=== PATIENT | female | born 1945 | race Caucasian/White ===

== ENCOUNTER 2023-03-07 16:30 | Outpatient (RCR) | payer OTHER, SELFPAY ==
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
== END 2023-04-22 16:21 | disposition home or self-care (01) ==
PROVIDERS: PCP Family Medicine; Visit Provider Family Medicine
DX: M25.572 Pain in left ankle and joints of left foot (principal); Z51.89 Encounter for other specified aftercare
CPT/HCPCS: 97110; 97140; 97161

== ENCOUNTER 2023-06-03 11:01 | Outpatient (CLI) | payer OTHER, SELFPAY | END 2023-06-03 11:02 | disposition home or self-care (01) | PROVIDERS: PCP Family Medicine; Visit Provider Family Medicine | DX: R22.1 Localized swelling, mass and lump, neck (principal); E03.9 Hypothyroidism, unspecified; E66.9 Obesity, unspecified; E78.5 Hyperlipidemia, unspecified | CPT/HCPCS: 80053; 84443 ==

== ENCOUNTER 2023-06-09 14:11 | Outpatient (CLI) | payer OTHER, SELFPAY ==
--- NOTE | 2023-06-09 15:00 | CRLHL7_ITS ---
For Patients: As a result of the Century Cures Act, medical imaging exams and procedure reports are released immediately into your electronic medical record. You may view this report before your referring provider. If you have questions, please contact your health care provider. INDICATION: Localized swelling. Neck mass and lump. COMPARISON: None. TECHNIQUE: CT soft tissue neck with IV contrast. ICD 370, with and 10 cc. FINDINGS: A marker has been placed only on the associate media director images on the left neck presumably to localize the focal abnormality. On CT images, at the level of the marker, mildly prominent otherwise normal-sized left level 2A lymph nodes, the largest of which measures 9 mm in maximal diameter. Otherwise, the left parotid gland is normal symmetric to the right. No other abnormality within the underlying fat or musculature of the left neck. Normal bilateral parotid and submandibular glands. Atrophic thyroid gland. No soft tissue abnormality in the right neck. Scattered small cervical lymph nodes in the remainder of the neck bilaterally. No supraclavicular superior mediastinal adenopathy. Nasopharynx and oropharynx are clear. No inflammation within the parapharyngeal fat pads or retropharyngeal space. Normal thickness of the epiglottis. Normal glottis with symmetric vocal cords. Lung apices are clear. Normal alignment of the cervical spine. Cervical spondylosis. Visualized paranasal sinuses and mastoid air cells are clear. IMPRESSION: 1. No soft tissue mass or cystic lesions soft tissues of the left neck at the level of the marker. 2. Mildly prominent otherwise normal-sized level IIA lymph nodes on left. 3. No adenopathy elsewhere. 4. Normal deep soft tissues neck. 5. Cervical spondylosis Please note that all CT scans at this facility use dose modulation, iterative reconstruction, and/or weight-based dosing when appropriate to reduce radiation dose to as low as reasonably achievable. Dictated by Aydin Vega MD @ 06/10/2023 12:02:09 PM (Electronically Signed)
== END 2023-06-09 14:12 | disposition home or self-care (01) ==
LOC: CT 14:14
PROVIDERS: PCP Family Medicine; Visit Provider Family Medicine
DX: R22.1 Localized swelling, mass and lump, neck (principal); M47.892 Other spondylosis, cervical region
CPT/HCPCS: 70491; Q9967

== ENCOUNTER 2023-07-04 13:36 | Outpatient (CLI) | payer OTHER, SELFPAY ==
--- NOTE | 2023-07-04 14:00 | CRLHL7_ITS ---
For Patients: As a result of the Cures Act, medical imaging exams and procedure reports are released immediately into your electronic medical record. You may view this report before your referring provider. If you have questions, please contact your health care provider. Indication: PALPABLE LUMP LEFT NECK Technique: Grayscale and color Doppler ultrasound of the left parotid gland. Comparison: CT 06/09/2023 Findings: No parotid gland lesion. No abnormal vascularity. No abscess. Impression: No suspicious intra parotid lesion. Dictated by Yoan Lozano MD @ 07/04/2023 2:34:30 PM (Electronically Signed)
--- NOTE | 2023-07-04 15:30 | CRLHL7_ITS ---
For Patients: As a result of the Century Cures Act, medical imaging exams and procedure reports are released immediately into your electronic medical record. You may view this report before your referring provider. If you have questions, please contact your health care provider. INDICATION: Localized swelling, mass and lump. TECHNIQUE: Multiplanar multisequence MR imaging acquired through the neck prior to and following intravenous contrast. COMPARISON: CT neck 06/09/2023. FINDINGS: Motion artifact degrades multiple sequences. The nasopharynx, oropharynx, hypopharynx, and larynx are widely patent and without enhancing lesions. No thickening of the epiglottis or retropharyngeal edema. No enhancing lesions in the oral cavity or floor of mouth. No enhancing lesions in the parotid or submandibular glands. The thyroid gland demonstrates homogeneous signal intensity and enhancement. Borderline enlarged left level II a lymph node demonstrates elongated morphology. No pathologically enlarged lymph nodes. Limited images through the brain are without pathologic intracranial enhancement. Advanced left temporomandibular joint degenerative changes with associated joint effusion. Multilevel cervical spondylosis. No concerning opacities in the lung apices. IMPRESSION: 1. Motion artifact degrades multiple sequences. 2. No mass or pathologically enlarged lymph nodes in the neck. 3. Borderline enlarged left level IIa lymph node demonstrates elongated morphology and is most likely reactive. 4. Advanced left temporomandibular joint degenerative changes. Dictated by Brandon Cooper MD @ 07/05/2023 8:09:58 AM (Electronically Signed)
== END 2023-07-04 13:37 | disposition home or self-care (01) ==
PROVIDERS: PCP Family Medicine; Visit Provider Otolaryngology
DX: R22.1 Localized swelling, mass and lump, neck (principal)
CPT/HCPCS: 70543; 76536; A9575

== ENCOUNTER 2023-07-24 18:02 | Emergency (ER) | payer OTHER, SELFPAY ==
[2023-07-24 18:07] VITALS: BP 136/79; PULSE 81; RESP 16; TEMP 36.5; O2SAT 97; BMI 36.3
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
[2023-07-24] MEDS: 0.9 % SODIUM CHLORIDE 1000 ml 1,000 ML IV (18:50)
[2023-07-24] MEDS: ONDANSETRON ODT 4 MG TAB PO (18:52)
[2023-07-24 18:56] LABS: Basophils Absolute Auto 0.01 K/uL (0.00-0.30); Basophils Percent Auto 0.1 % (0.0-3.0); Eosinophils Percent Auto 1.3 % (0.0-7.0); Hemoglobin* 15.5 gm/dL (12.0-16.0); Immature Granulocytes Abs Auto 0.01 K/uL (0.00-0.30); Immature Granulocytes Pct Auto 0.1 %; Lymphocytes Percent Auto 5.2 % (20-44); Mean Corpuscular HGB Conc 33 gm/dL (32-36); Mean Corpuscular Hemoglobin 28 pg (26-34); Mean Corpuscular Volume 85 fL (80-100); Monocytes Percent Auto 3.7 % (0.0-11.0); Neutrophils Percent Auto 89.6 % (42.0-72.0); Platelet Count* 203 K/uL (140-440); RDW Coefficient of Variation % 13.1 % (11.5-15.5); Red Blood Count 5.56 m/uL (4.00-5.20); White Blood Count* 7.82 K/uL (4.50-11.00)
[2023-07-24 19:04] LABS: Lactate* 1.2 mmol/L (0.5-1.9); Slide Review Reflex No
[2023-07-24 19:17] LABS: Chloride* 106 mmol/L (96-114); Sodium* 136 mmol/L (135-149)
[2023-07-24 19:18] LABS: Potassium* 4.2 mmol/L (3.6-5.1)
[2023-07-24 19:20] LABS: Anion Gap 10 mEq/L (7-15); Blood Urea Nitrogen* 18 mg/dL (7-30); Carbon Dioxide* 20 mmol/L (20-32); Creatinine* 0.7 mg/dL (0.5-1.5); Estimated Glomerular Filt Rate 89 ml/min
[2023-07-24 19:21] LABS: Calcium* 8.9 mg/dL (8.4-10.6); Glucose* 124 mg/dL (60-115)
[2023-07-24 19:28] LABS: PCR FLU A Negative PCR FLU A (Negative); PCR FLU B Negative PCR FLU B (Negative); PCR RSV Negative PCR RSV (Negative)
[2023-07-24] MEDS: LOPERAMIDE HCL 2 MG CAPSULE 4 MG PO (19:32)
[2023-07-24 19:34] LABS: SARS PCR* Negative SARS-CoV-2 (Negative)
== END 2023-07-24 21:24 | disposition home or self-care (01) ==
PROVIDERS: Emergency Provider Emergency Medicine; PCP Family Medicine
DX: R11.2 Nausea with vomiting, unspecified (principal)
CPT/HCPCS: 36415; 80048; 83605; 85025; 87631; 95992; 99283; A9270; J7030

== ENCOUNTER 2023-08-18 05:01 | Outpatient (CLI) | payer OTHER, SELFPAY ==
--- OUTSIDE RECORDS SUMMARY | 2023-08-22 09:55 | XMS_ITS | Encounter Summary ---
Author Name Unknown Organization [facility] Address [facility] [place] [address] Care Team Providers Care Infrastructure Design Engineer Name Role Phone Bernadette Aldana MD Primary Care Provider Unavailab le Reason for Visit * Reason Onset Date Comments Referral 03/19/2019 New Eval Encounter Details Date Type Department Care Team (Late st Contact Info) Description 03/19/2019 Telephone Digital H2O [facility] [address] [place] [address] Pain Management Program, [facility] Referral (New Eval ) Social History [...] to schedule a new eval. Whitney Rendon Veterans Employment Representative [facility] * Telephone Encounter - Jenny Washington - 03/19/2019 2:12 PM CDT Referral received from Aditi Fraga NP at [facility] for a comprehensive evaluationand management. Diagnosis - Lumbar radicular pain with previous lumbar fusion Routing for scheduling. Jenny Washington Veterans Employment Representative [facility] documented in this encounter Plan of Treatment Not on file documented as of this encounter Visit Diagnoses Not on filedocumented in this encounter Care Teams Infrastructure Design Engineer Relationship Specialty Start Date End Date Bernadette Aldana MD PCP - General Family Practice 03/06/19 documented as of this encounter
--- OUTSIDE RECORDS SUMMARY | 2023-08-22 09:55 | XMS_ITS | Clinical Summary ---
Author Name Unknown Organization [place] Address [facility] [place] [address] Care Team Providers Care Die Fitter Name Role Phone Bernadette Aldana MD Primary [...] of Treatment Not on file Care Teams Die Fitter Relationship Specialty Start Date End Date Bernadette Aldana MD PCP - General Family Practice 03/06/19
--- OUTSIDE RECORDS SUMMARY | 2023-08-22 09:55 | XMS_ITS | Referral Summary ---
Author Name Unknown Organization [place] Address [address] [facility] [place] [address] Care Team Providers Care Preassembler Printed Circuit Board Name Role Phone Bernadette Aldana MD Primary [...] of Treatment Not on file Care Teams Preassembler Printed Circuit Board Relationship Specialty Start Date End Date Bernadette Aldana MD PCP - General Family Practice 03/06/19
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
== END 2023-08-18 05:02 | disposition home or self-care (01) ==
LOC: AMB 08-22 09:53
PROVIDERS: PCP Family Medicine; Visit Provider Family Medicine
DX: R53.1 Weakness (principal)
CPT/HCPCS: A0998

== ENCOUNTER 2023-08-18 16:16 | Emergency (ER) | payer OTHER, SELFPAY ==
[2023-08-18 16:32] VITALS: BP 155/80; PULSE 70; RESP 16; TEMP 36.2; O2SAT 99; BMI 35.5
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
--- NOTE | 2023-08-18 17:07 | CRLHL7_ITS ---
For Patients: As a result of the Century Cures Act, medical imaging exams and procedure reports are released immediately into your electronic medical record. You may view this report before your referring provider. If you have questions, please contact your health care provider. Indication : Fall, neck pain. Technique : CT of the brain without intravenous contrast. Comparison: CT head 06/09/2021. Findings: No acute blurring of the ramos-white differentiation. There is no intracranial hemorrhage. The ventricles are proportionate to the cerebral sulci. The 4th ventricle is midline. Basal cisterns appear patent. No abnormal extra-axial fluid collection identified. Mild parenchymal volume loss. There is mild patchy periventricular hypodensity, favored to represent chronic ischemic microvascular disease. There is no intracranial mass, mass effect or midline shift identified. No depressed calvarial fracture. Impression: 1. No acute intracranial process. 2. Mild chronic ischemic microvascular disease. Please note that all CT scans at this facility use dose modulation, iterative reconstruction, and/or weight-based dosing when appropriate to reduce radiation dose to as low as reasonably achievable. Dictated by Maykel Spicer MD @ 08/18/2023 6:03:30 PM (Electronically Signed)
--- OUTSIDE RECORDS SUMMARY | 2023-08-18 17:22 | XMS_ITS | Clinical Summary ---
Author Name Unknown Organization [place] Address [facility] [place] [address] Care Team Providers Care Bone Cooking Operator Name Role Phone Bernadette Aldana MD Primary Care Provider Unavailab le Allergies No known active allergies Medications Medication Sig Dispensed Refills Start Date End Date Status CYCLOBENZAPRINE HCL PO Take by mouth. 0 Active oxyCODONE-acetaminoph en (PERCOCET) 5-325 MG per tablet Take 1 tablet by mouth every 6 hours as needed for pain. 20 tablet 0 01/18/2012 Active ibuprofen (ADVIL,MOTRIN) 200 MG tablet Take 3 tablets by mouth every 8 hours as needed for pain. 20 tablet 0 01/18/2012 Active HYDROcodone-acetamino phen (NORCO) 5-325 MG tablet Take 1-2 tablets by mouth every 6 hours as needed for severe pain 12 tablet 0 03/06/2019 Active Social History Tobacco Use Types Packs/Day Years Used Date Smoking Tobacco: Former Alcohol Use Standard Drinks/Week Comments No 0 (1 standard drink = 0.6 oz pur e alcohol) Sex and Gender Information Value Date Recorded Sex Assigned at Not on file Gender Identity Not on file Sexual Orientation Not on file Last Filed Vital Signs Vital Sign Reading Time Taken Comments Blood Pressure 130/67 03/06/2019 6:20 PM CDT Pulse 73 03/06/2019 3:45 PM CDT Temperature 36.9 ??C (98.4 ??F) 03/06/2019 3:45 PM CD T Respiratory Rate 16 03/06/2019 6:59 PM CDT Oxygen Saturation 95% 03/06/2019 6:30 PM CDT Inhaled Oxygen Concentration - - Weight 100.7 kg (222 lb) 01/18/2012 8:43 PM CDT Height 170.2 cm (5' 7) 01/18/2012 8:43 PM CDT Body Mass Index 34.77 01/18/2012 8:43 PM CDT Plan of Treatment Not on file Care Teams Bone Cooking Operator Relationship Specialty Start Date End Date Bernadette Aldana MD PCP - General Family Practice 03/06/19
--- OUTSIDE RECORDS SUMMARY | 2023-08-18 17:22 | XMS_ITS | Clinical Summary ---
Author Name Unknown Organization [facility] Address [place], [place] [address] Care Team Providers Care Driver Lifter Of Sanitation Truck Name Role Phone Viviana Zuniga AuD Unavailable [phone] Allergies No known active allergies Medications Medication Sig Dispensed Refills Start Date End Date Status Incontinence Pad, Liner, Disp padsIndications:Urin venkatesh incontinence, unspecified type 1 Package 04/28/2017 Active albuterol (PROVENTIL) 0.083 % neb solutionIndications: SOB (shortness of breath) Inhale 3 mL (2.5 mg) via a nebulizer every 6 hours if needed for Cough 1st choice. 180 mL 0 07/22/2022 Active NebulizerIndications :SOB (shortness of breath) Nebulizer, disposable neb kit x 4, reuseable neb kit x 1, mask x 1, filters x 1. Frequency of use: daily; Medication: albuterol Length of need: prn months 1 Each 0 07/22/2022 Active permethrin (ELIMITE) 5 % creamIndications:Alexandr h,Pruritus Apply to entire body from the neck down and leave on for 8 hours. Then rinse and repeat this in one week. 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 Constipation 12/26/2017 ACP (advance care planning) 12/19/2017 Overview: Patient has identified Health Care Agent(s): Yes Add Health Care Agents: Yes Health Care Agent(s): Primary Health Care Agent: Dtr Relationship: Stephani Sellers Phone: W:[phone] ext [phone] Secondary Health Care Agent: Dtr Relationship: Thompson Saucedo Phone: M:[phone] Conservator: Relationship: Phone: Guardian: Relationship: Phone: Patient has Advance Care Plan Documents (Health Care Directive, POLST): Yes Advance Care Plan Documents: Health Care Directive Patient has identified Specific Treatment Preferences: Yes How have preferences been verified: HCD Specific Treatment Preferences: Please refer to HCD - Pt does not want CPR attempted if heart or breathing stops. 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 Recommend no intervention at this time If symptoms develop, consider cholecystectomy. Acosta Lang MD........06/11/2017......2:15 PM Chantale Nunez Physician Fatty liver 06/10/2017 Low HDL (under 40) 06/10/2017 High triglycerides 06/10/2017 Obesity (BMI 30-39.9) 06/10/2017 Hypothyroidism (acquired) 06/10/2017 Other constipation 06/10/2017 Seborrheic keratosis 06/03/2017 Overview: Right breast Atypical chest pain 03/21/2016 FLORENCIO (obstructive sleep apnea) 03/21/2016 Overview: AHI 13.0 on Home Sleep Test, WALE 11.4, snore index 8.6% Urinary incontinence 06/04/2013 Sensorineural hearing loss, bilateral 06/01/2013 Vitamin D deficiency 10/29/2012 Osteoporosis 10/23/2012 Impingement syndrome of left shoulder 08/25/2012 L4-5 disk bulge with annular tear and right leg pain 12/09/2011 Shingles rash vs. 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 Followed by Dr Strong, [facility] Advance care planning 03/27/2011 PVD (posterior vitreous detachment) 05/30/2009 Resolved Problems Problem Noted Date Diagnosed Date Resolved Date Acute cystitis without hematuria 01/01/2018 09/20/2019 Hypocalcemia 12/26/2017 09/20/2019 Hypokalemia 12/26/2017 09/20/2019 Postoperative anemia due to acute blood loss 8 09/20/2019 S/P hip replacement-right 10/12/2014 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 No compression fx Iron deficiency anemia, unspecified 04/17/2011 01/11/2014 DJD (degenerative joint disease) of hip-Right 03/27/20 11 09/20/2019 Elevated blood pressure read ing without diagnosis of hypertension 05/12/2009 01/11/2014 Immunizations Name Administration Dates Next Due COVID-19 vaccine (Moderna 100mcg/0.5mL) PF, MDV 10/26/2020 Influenza, High-dose Inactivated 05/09/2020,05/12 Influenza, IIV3 (Age 6-35 mos) 06/27/2011 Influenza, IIV3 (Age >=3 years) 05/06/2013,06/27 Influenza, IIV4 (=>6mos) MDV 05/26/2014 Influenza, Inactivated IIV3 (Age 65+ Years) Preserv Free 05/26/2018 Pneumococcal Poly,23-Valent (Pneumovax) 08/24/19 13 Pneumococcal conj 13-Valent (Prevnar 13) 016 Td (Age >=7 Years) 04/11/1996 Tdap 03/27/2011 Zoster (Zostavax-ZVL, live) 05/30/2011 Family History Medical History Relation Name Comments Cancer Brother Bladder Diabetes Father Heart Disease Father Cancer-breast Mother Other Mother multiple sclero sis Cancer-colon Sister Cancer-ovarian No Family History Relation Name Status Comments Brother Father Mother (Age 57) Diagnosed at 39 Sister Social History Tobacco Use Types Packs/Day Years Used Date Smoking Tobacco: Former Cigarettes 0.5 10 0 10/11/1960 - 10/11/1970 Smokeless Tobacco: Never Tobacco Cessation:Counseling Given: Yes Alcohol Use Standard Drinks/Week Comments Not Currently 0 (1 standard drink = 0.6 oz pur e alcohol) PHQ-2 Answer Date Recorded PHQ-2 Score 1 08/31/2019 Social Connections Answer Date Recorded Frequency of Communication with Friends and Fami ly Not on file 08/11/2021 Financial Resource Strain Answer Date R ecorded Difficulty of Paying Living Expenses Not on file 08/11/2021 Difficulty of Paying Living Expenses Not on file 08/11/2021 Sex and Gender Information Value Date Recorded Sex Assigned at Not on file Gender Identity Not on file Sexual Orientation Not on file Obstetrics History Last Filed Vital Signs Vital Sign Reading Time Taken Comments Blood Pressure 112/57 10/14/2022 7:59 AM SECURITY DELIVERY SPECIALIST Pulse 55 10/14/2022 7:59 AM SECURITY DELIVERY SPECIALIST Temperature 36.3 ??C (97.4 ??F) 08/27/2022 7:36 AM CS T Respiratory Rate 18 12/21/2017 7:23 AM CDT Oxygen Saturation 97% 08/27/2022 7:36 AM SECURITY DELIVERY SPECIALIST Inhaled Oxygen Concentration - - Weight 103.7 kg (228 lb 11.2 oz) 08/27/2022 7:36 AM SECURITY DELIVERY SPECIALIST Height 172.7 cm (5' 8) 11/28/2021 3:18 PM CDT Body Mass Index 34.77 11/28/2021 3:18 PM CDT Plan of Treatment Health Maintenance Due Date Last Done Comments Zoster (shingles) series for age 50+ (1 of 2) 07/25/2011 05/30/2011 Medicare Wellness for age 65+ 08/24/2013 08/24/2012 Depression screening for age 12+ 08/31/2020 08/31/2019, 05/21/2018, 05/18/2018, Additional history exists Tetanus booster 03/27/2021 03/27/2011, 04/11/1996 BMI (ht and wt on same day) for age 18+ 11/28/2022 11/28/2021, 12/05/2020, 09/20/2019, Additional history exists COVID-19 vaccine series ( season) 2023 01/17/2022, 06/15/2021, 10/26/2020, Additional history exists Influenza for age 65+ 04/11/2023 05/09/2020 , 06/02/2019, 05/26/2018, Additional history exists Tdap Completed 03/27/2011 DEXA/DXA scan for age 65+ Completed 2012, 09/01/2012, 10/30/2010 Pneumococcal series for age 65+ Completed 6, 08/24/2012 Hepatitis C screening for ag e 18-79 Completed 06/10/2017 Fecal testing non-DNA (FIT,FOBT,iFOBT) for age 45-75 Discontinued 01/07/2018, 10/12/2014 Medical Devices Implanted Type Area Project Drilling Engineer Device Identifier Shelf Expiration Date Model / Serial / Lot Bone Matrix Xsm Infuse Bmp - [id number] Implanted:Qty: 1 on 12/18/2017 by Yoan New MD at [facility] N/A: Spine Medtronic Spine/Ortho 02/07/2019 [id number] / / [id number] Screw Lmbr Post 5.5x55mm Solera 5.5/6 Va Cocr - [id number] Implanted:Qty: 2 on 12/18/2017 by Yoan New MD at [facility] N/A: Spine Medtronic Spine/Ortho [id number] 5# / / Scot Lmbr 60x5.5mm Solera 5.5/6cvd Co Cr - [id number] Implanted:Qty: 2 on 12/18/2017 by Yoan New MD at [facility] N/A: Spine Medtronic Spine/Ortho [id number] # / / Bone Matrix 10cc Progenix Putty Dbm - [id number] Implanted:Qty: 1 on 12/18/2017 by Yoan New MD at [facility] N/A: Spine Medtronic Spine/Ortho 03/21/2019 [id number]# / / [id number] Spacer Lmbr [id number] 8deg Mdsovereign Stand Alone - [id number] Implanted:Qty: 1 on 12/18/2017 by Yoan New MD at [facility] N/A: Spine Medtronic Spine/Ortho 08/19/2024 [id number] / / [id number] Spacer Lmbr [id number] 8deg Mdsovereign Stand Alone - [id number] Implanted:Qty: 1 on 12/18/2017 by Yoan New MD at [facility] N/A: Spine Medtronic Spine/Ortho 01/29/2018 [id number]# / / [id number] Screw Lmbr 5.5x25mm Sovereign Stand Alone - [id number] Implanted:Qty: 4 on 12/18/2017 by Yoan New MD at [facility] N/A: Spine Medtronic Spine/Ortho [id number]# / / Screw Lmbr 5.5x20mm Sovereign Stand Alone - [id number] Implanted:Qty: 1 on 12/18/2017 by Yoan New MD at [facility] N/A: Spine Medtronic Spine/Ortho [id number]# / / Set Screw Lmbr Ant 5.5mm Solera Break Off - [id number] Implanted:Qty: 6 on 12/18/2017 by Yoan New MD at [facility] N/A: Spine Medtronic Spine/Ortho [id number]# / / Screw Lmbr Post 7.5x55mm Solera 5.5/6 Va Cocr - [id number] Implanted:Qty: 2 on 12/18/2017 by Yoan New MD at [facility] N/A: Spine Medtronic Spine/Ortho [id number] 5# / / Screw Lmbr Post 7.5x45mm Solera 5.5/6 Va Cocr - [id number] Implanted:Qty: 2 on 12/18/2017 by Yoan New MD at [facility] N/A: Spine Medtronic Spine/Ortho [id number] 5# / / Advance Directives Documents on File Type Date Recorded Patient Sleeve Setter Lockstitch Expl anation Healthcare Directive 01/13/2018 12:57 PM DN R REQUEST FORM, DESIRE MERCADO, 01/06/18 POLST 01/13/2018 12:56 PM DESIRE GAMBINO, 01/06/18 Healthcare Directive 12/19/2017 6:59 PM Healthcare Directive 12/18/2017 12:00 AM Latest Code Status on File Code Status Date Activated Date Inactivated Comments Full Code 12/18/2017 5:35 AM 12/21/2017 2:04 PM Code Status History Code Status Date Activated Date Inactivated Comments Full Code 11/03/2012 11:20 AM 11/03/2012 3:27 PM Full Code 11/03/2012 7:10 AM 11/03/2012 11:20 AM Care Teams Driver Lifter Of Sanitation Truck Relationship Specialty Start Date End Date Viviana Zuniga AuD Audiology 06/01/13
--- OUTSIDE RECORDS SUMMARY | 2023-08-18 17:22 | XMS_ITS | Referral Summary ---
Author Name Unknown Organization [place] Address [address] [facility] [place] [address] Care Team Providers Care Business Librarian Name Role Phone Bernadette Aldana MD Primary [...] of Treatment Not on file Care Teams Business Librarian Relationship Specialty Start Date End Date Bernadette Aldana MD PCP - General Family Practice 03/06/19
--- OUTSIDE RECORDS SUMMARY | 2023-08-18 17:22 | XMS_ITS | Encounter Summary ---
Author Name Unknown Organization [place] Address [facility] [place] [address] Care Team Providers Care Agricultural Plow Operator Name Role Phone Bernadette Aldana MD Primary Care Provider Unavailab le Reason for Visit * Reason Onset Date Comments Referral 03/19/2019 New Eval Encounter Details Date Type Department Care Team (Late st Contact Info) Description 03/19/2019 Telephone enMarkit [facility] [address] [place] [address] Pain Management Program, [facility] Referral (New Eval ) Social History Tobacco Use Types Packs/Day Years Used Date Smoking Tobacco: Former Alcohol Use Standard Drinks/Week Comments No 0 (1 standard drink = 0.6 oz pur e alcohol) Sex and Gender Information Value Date Recorded Sex Assigned at Not on file Gender Identity Not on file Sexual Orientation Not on file documented as of this encounter Miscellaneous Notes * Telephone Encounter - Whitney Rendon - 03/22/2019 10:23 AM CDT Lm to schedule a new eval. Whitney Rendon Safety Advisor [facility] * Telephone Encounter - Jenny Washington - 03/19/2019 2:12 PM CDT Referral received from Aditi Fraga NP at [facility] for a comprehensive evaluationand management. Diagnosis - Lumbar radicular pain with previous lumbar fusion Routing for scheduling. Jenny Washington Safety Advisor [facility] documented in this encounter Plan of Treatment Not on file documented as of this encounter Visit Diagnoses Not on filedocumented in this encounter Care Teams Agricultural Plow Operator Relationship Specialty Start Date End Date Bernadette Aldana MD PCP - General Family Practice 03/06/19 documented as of this encounter
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
[2023-08-18] MEDS: ACETAMINOPHEN 500 MG TABLET 1000 MG PO (18:11)
--- NOTE | 2023-08-18 18:12 | CRLHL7_ITS ---
For Patients: As a result of the Century Cures Act, medical imaging exams and procedure reports are released immediately into your electronic medical record. You may view this report before your referring provider. If you have questions, please contact your health care provider. Indication: Hip pain. Technique: Noncontrast CT of the right hip was performed. Please note that all CT scans at this facility use dose modulation, iterative reconstruction, and/or weight-based dosing when appropriate to reduce radiation dose to as low as reasonably achievable. Comparison: Radiographs from 08/18/2023 and 02/28/2019. Findings: Anatomic alignment of the right total hip prosthesis. Hardware is intact without evidence of complication. No acute fracture is seen. Mild osteoarthritis of the sacroiliac joints. Moderate degenerative changes of the left hip and pubic symphysis. Partially visualized lumbosacral fusion hardware. The bones are diffusely demineralized. Atherosclerotic arterial calcifications. Nonobstructed bowel. Impression: Anatomic alignment of the right hip prosthesis. No evidence of periprosthetic fracture. Please note that all CT scans at this facility use dose modulation, iterative reconstruction, and/or weight-based dosing when appropriate to reduce radiation dose to as low as reasonably achievable. Dictated by Lisa Conway MD @ 08/18/2023 8:01:31 PM (Electronically Signed)
== END 2023-08-18 20:15 | disposition home or self-care (01) ==
PROVIDERS: Emergency Provider Family Medicine; PCP Family Medicine
DX: M54.2 Cervicalgia (principal); M25.551 Pain in right hip; W10.9XXA Fall (on) (from) unspecified stairs and steps, initial encounter
CPT/HCPCS: 70450; 72125; 73700; 99284; 99285; A9270

== ENCOUNTER 2023-10-29 14:26 | Emergency (ER) | payer OTHER, SELFPAY ==
[2023-10-29 14:47] VITALS: BP 113/74; PULSE 64; RESP 20; TEMP 36.6; O2SAT 96; BMI 34.7
--- NOTE | 2023-10-29 15:05 | CT_ITS ---
Patient: [facility] Facility:?[facility] RIS Patient ID:?[id number] Site Patient ID:?[id number]. Site :?1945 Study:?CT-Abdomen/Pelvis W/ ISOVUE 370-10/29/2023 4:07:37 PM Ordering Physician:ANGÉLICA Final Report: INDICATION: Abdominal pain, diarrhea TECHNIQUE: CT of the abdomen and pelvis was obtained with 106 mL of Isovue 370 intravenous contrast. Please note that all CT scans at this facility use dose modulation, iterative reconstruction, and/or weight-based dosing when appropriate to reduce radiation dose to as low as reasonably achievable. COMPARISON: None. FINDINGS: Lower thorax: 7 millimeter right lower lobe subpleural nodule (11/06). Consensus guidelines for incidentally detected lung nodule(s) 6 mm or greater on incomplete thoracic CT, not applicable if known malignancy or immunocompromise: Low risk, nodule 6-8 mm: CT at 6-12 months, then consider CT at 18-24 months if stable. High risk, nodule 6-8 mm: CT at 6-12 months, then CT at 18-24 months if stable. Nodule greater than 8 mm: Further evaluation with full chest CT. (Jovi, et al. Radiology 2017) Liver and biliary tree: Normal. Gallbladder: Cholelithiasis versus sludge. Spleen: Normal. Pancreas: Mild fatty atrophy. Adrenal glands: Normal. Kidneys and ureters: No hydronephrosis. No obstructing renal calculi. Subcentimeter hypoattenuating lesions are too small to characterize and are favored to represent cysts. Gastrointestinal tract: Mild descending and sigmoid colonic diverticulosis without CT evidence of acute diverticulitis. Appendix is not definitively visualized. No evidence of bowel obstruction. Mild submucosal edema of the descending and sigmoid colon. Peritoneal cavity: Normal. Bladder: Normal. Pelvic organs: Status post hysterectomy. Vasculature: Moderate calcification. Lymph nodes: Normal. Abdominal wall: Normal. Musculoskeletal: Postsurgical changes from screw fixated right total hip arthroplasty. Moderate degenerative changes of the left hip. Postsurgical changes from lumbosacral spinal fusion. IMPRESSION: 1. Cholelithiasis versus sludge without CT evidence of acute cholecystitis. 2. Mild submucosal edema of the descending and sigmoid colon may represent infection or inflammation, though this may be accentuated by underdistention. Please note that all CT scans at this facility use dose modulation, iterative reconstruction, and/or weight-based dosing when appropriate to reduce radiation dose to as low as reasonably achievable. Dictated by Geremias Caldwell MD @ 10/29/2023 4:35:39 PM Signed by:?Geremias Caldwell MD @10/29/2023 4:35:39 PM (Electronic Signature)
--- NOTE | 2023-10-29 15:08 | ED_ITS ---
HPI - General Adult General Chief complaint: Abdominal Pain <Michael Combs MD - Last Filed: 10/29/23 15:13> Stated complaint: Vomiting green, lightheaded, weight loss <Michael Combs MD - Last Filed: 10/29/23 15:13> Time Seen by Provider: 10/29/23 14:29 <Michael Combs MD - Last Filed: 10/29/23 15:13> History of Present Illness HPI narrative: Patient is a 77 year white female who in for a cruise to [employer] earlier this month. She came home with a cough and a cold, she has been living in exposed to someone who has COVID. She has tested negative up to this point. She has had mostly her complaint today is diarrhea, when she eats food goes ?right through me?. Patient denies horrible abdominal pain but does report some nonspecific diffuse abdominal cramping. She has had no blood in her stool. She has had no vomitus of blood. She has not had any intestinal infections in the past. She is usually quite healthy. Her medical chart is reviewed . she reports she has lost a little bit of weight She denies shortness of breath, denies chest pain, denies cough that is been bothersome now, denies leg swelling or edema or bleeding or clotting problems. <Michael Combs MD - Last Filed: 10/29/23 15:13> Related Data Home medications: Home Medications Medication Instructions Recorded Confirmed No Known Home Medications 01/28/23 08/18/23 <Michael Combs MD - Last Filed: 10/29/23 15:13> Allergies/adverse reactions: Allergies Allergy/AdvReac Type Severity Reaction Status Date / Time No Known Drug Allergies Allergy Verified 08/18/23 14:39 <Michael Combs MD - Last Filed: 10/29/23 15:13> Review of Systems Status of ROS: Reports: 6 or more systems reviewed and unremarkable except as noted in History and below <Michael Combs MD - Last Filed: 10/29/23 15:13> PFSH PFS Surgical History: Surgical History Status post right knee replacement ?Z96.651 - Presence of right artificial knee joint (ICD-10) Status post lumbar spinal fusion ?Z98.1 - Arthrodesis status (ICD-10) <Michael Combs MD - Last Filed: 10/29/23 15:13> Family History: Family History Family/Other Colon cancer <Michael Combs MD - Last Filed: 10/29/23 15:13> Social History: Social History Narrative: Has a male roommate, nonsmoker, 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 Smoking Status: Never smoker Do you use any of these nicotine containing products: None Second hand tobacco smoke exposure: No How often do you have a drink containing alcohol: never How often do you have six or more drinks on one occasion: Never AUDIT-C Alcohol total score: 0 Non-prescribed substance use: denies use Little interest or pleasure in doing things: not at all Feeling down, depressed, or hopeless: not at all service: No <Michael Combs MD - Last Filed: 10/29/23 15:13> Exam Narrative: Exam Narrative: Objective: Vital signs look within normal limits, afebrile, O2 sat 96% on room air Alert orient x3, noncyanotic Neck is supple HEENT is unremarkable no facial asymmetry mouth clear Chest is clear Pulse regular Abdomen obese benign nontender no masses minimal periumbilical discomfort to palpation Good peripheral perfusion, no peripheral swelling. Neurologic nonfocal in upper lower extremities Skin is warm and dry, no skin rashes <Michael Combs MD - Last Filed: 10/29/23 15:13> Const: Vital Signs, click to edit/add: Vital Signs - 24 hr 10/29/23 14:47 10/29/23 15:26 10/29/23 15:30 Temperature 97.8 F Pulse Rate 53 L 60 Pulse Rate [Pulse Oximeter] 64 Respiratory Rate 20 14 16 Blood Pressure 130/92 H 136/76 Blood Pressure [Ri ght Upper Arm] 113/74 Pulse Oximetry 96 96 94 Oxygen Delivery Me thod Room Air <Michael Combs MD - Last Filed: 10/29/23 15:13> Vital Signs, click to edit/add: Vital Signs - 24 hr 10/29/23 14:47 10/29/23 15:26 10/29/23 15:30 Temperature 97.8 F Pulse Rate 53 L 60 Pulse Rate [Pulse Oximeter] 64 Respiratory Rate 20 14 16 Blood Pressure 130/92 H 136/76 Blood Pressure [Ri ght Upper Arm] 113/74 Pulse Oximetry 96 96 94 Oxygen Delivery Me thod Room Air <Adonis Rich DO - Last Filed: 10/29/23 16:47> Course Vital Signs Vital signs: Initial Vital Signs Temperature 97.8 F 10/29/23 14:47 Temperature Source Temporal Artery Scan 10/29/23 14:47 Pulse Rate 64 10/29/23 14:47 Pulse Rhythm Regular 10/29/23 14:47 Respiratory Rate 20 10/29/23 14:47 Blood Pressure 113/74 10/29/23 14:47 Blood Pressure Mean 87 10/29/23 14:47 Blood Pressure Position Supine 10/29/23 14:47 Pulse Oximetry 96 10/29/23 14:47 Oxygen Delivery Method Room Air 10/29/23 14:47 Vital Signs Temperature 97.8 F 10/29/23 14:47 Pulse Rate 64 10/29/23 14:47 Respiratory Rate 20 10/29/23 14:47 Blood Pressure 113/74 10/29/23 14:47 Pulse Oximetry 96 10/29/23 14:47 Oxygen Delivery Method Room Air 10/29/23 14:47 Temperature 97.8 F 10/29/23 14:47 Pulse Rate 60 10/29/23 15:30 Respiratory Rate 16 10/29/23 15:30 Blood Pressure 136/76 10/29/23 15:30 Pulse Oximetry 94 10/29/23 15:30 Oxygen Delivery Method Room Air 10/29/23 14:47 <Michael Combs MD - Last Filed: 10/29/23 15:13> Initial Vital Signs Temperature 97.8 F 10/29/23 14:47 Temperature Source Temporal Artery Scan 10/29/23 14:47 Pulse Rate 64 10/29/23 14:47 Pulse Rhythm Regular 10/29/23 14:47 Respiratory Rate 20 10/29/23 14:47 Blood Pressure 113/74 10/29/23 14:47 Blood Pressure Mean 87 10/29/23 14:47 Blood Pressure Position Supine 10/29/23 14:47 Pulse Oximetry 96 10/29/23 14:47 Oxygen Delivery Method Room Air 10/29/23 14:47 Vital Signs Temperature 97.8 F 10/29/23 14:47 Pulse Rate 64 10/29/23 14:47 Respiratory Rate 20 10/29/23 14:47 Blood Pressure 113/74 10/29/23 14:47 Pulse Oximetry 96 10/29/23 14:47 Oxygen Delivery Method Room Air 10/29/23 14:47 Temperature 97.8 F 10/29/23 14:47 Pulse Rate 60 10/29/23 15:30 Respiratory Rate 16 10/29/23 15:30 Blood Pressure 136/76 10/29/23 15:30 Pulse Oximetry 94 10/29/23 15:30 Oxygen Delivery Method Room Air 10/29/23 14:47 <Adonis Rich DO - Last Filed: 10/29/23 16:47> Medications Administered Medications: Discontinued Medications Generic Name Dose Route Start Last Admin Trade Name Freq PRN Reason Stop Dose Admin Sodium Chloride 1,000 mls @ 6,000 mls/hr 10/29/23 15:15 10/29/23 16:17 0.9 % Sodium Chloride 1000 Ml IV 10/29/23 15:24 Infused .Q10M ODALYS Infusion <Michael Combs MD - Last Filed: 10/29/23 15:13> Discontinued Medications Generic Name Dose Route Start Last Admin Trade Name Freq PRN Reason Stop Dose Admin Sodium Chloride 1,000 mls @ 6,000 mls/hr 10/29/23 15:15 10/29/23 16:17 0.9 % Sodium Chloride 1000 Ml IV 10/29/23 15:24 Infused .Q10M ODALYS Infusion <Adonis Rich DO - Last Filed: 10/29/23 16:47> Medical Decision Making MDM Narrative Medical decision making narrative: [age] white female with a history of recent travel, with diarrhea, loose stools. Patient did have a upper respiratory type symptoms and now it has improved. She has been testing negative for COVID. At this point would recommend she do COVID test and triple swab, will check a CT scan of her abdomen given this has been persistent now for couple of weeks. Rule out diverticulitis, rule out colitis. Will also check stool sample for culture, O&P, C diff. disposition pending findings. <Michael Combs MD - Last Filed: 10/29/23 15:13> Patient was signed out to me pending CT scan and stool samples. CT scan returned showing cholelithiasis without any evidence of acute cholecystitis. She does states she has occasional bowel right upper quadrant pain but none right now. I do not believe we need to get General surgery involved at this time and if she does have right upper quadrant symptoms that are persistent she can follow-up on an outpatient setting. She is agreeable to this. There is also mucosal edema of the descending and sigmoid colon that could be infectious versus inflammatory. Hard to say definitively at this time. She otherwise is appeared well. Her COVID test came back positive. She notes she test positive for COVID 1 week ago also. This is diarrhea seems likely a continuation of her COVID symptoms. She otherwise looks well and is well hydrated. Vital signs are within normal limits. I believe she is safe for discharge she is agreeable with this plan. She has been unable to do a bowel movement at this time so we sent her home a specimen cup to return. She is agreeable to this plan <Adonis Rich DO - Last Filed: 10/29/23 16:47> Lab Data Labs: Lab Results 10/29/23 Range/Units 15:15 WBC 6.97 (4.50-11.00) K/uL RBC 4.80 (4.00-5.20) m/uL Hgb 13.3 (12.0-16.0) gm/dL Hct 40.5 (33.0-51.0) % MCV 84 (80-100) fL MCH 28 (26-34) pg MCHC 33 (32-36) gm/dL RDW Coeff of Cailin 13.2 (11.5-15.5) % Plt Count 193 (140-440) K/uL Neut % (Auto) 71.2 (42.0-72.0) % Lymph % (Auto) 18.7 L (20-44) % [place] % (Auto) 7.9 (0.0-11.0) % Eos % (Auto) 2.0 (0.0-7.0) % Baso % (Auto) 0.1 (0.0-3.0) % Neut # (Auto) 4.96 (1.7-7.0) K/uL Lymph # (Auto) 1.30 (0.90-2.90) K/uL [place] # (Auto) 0.60 (0.00-0.90) K/UL Eos # (Auto) 0.14 (0.00-0.50) K/uL Baso # (Auto) 0.01 (0.00-0.30) K/uL Abs Immat Gran (auto) 0.01 (0.00-0.30) K/uL Imm/Tot Granulo (auto) 0.1 % Sodium 139 (135-149) mmol/L Potassium 3.7 (3.6-5.1) mmol/L Chloride 107 (96-114) mmol/L Carbon Dioxide 28 (20-32) mmol/L Anion Gap 4 L (7-15) mEq/L BUN 20 (7-30) mg/dL Creatinine 0.7 (0.5-1.5) mg/dL Estimated Creat Clear 44.10 Estimated GFR 89 ml/min Glucose 105 (60-115) mg/dL Calcium 9.4 (8.4-10.6) mg/dL Total Bilirubin 0.9 (0.1-1.5) mg/dL Direct Bilirubin 0.3 (0.0-0.5) mg/dL AST 27 (12-35) U/L ALT 24 (4-35) U/L Alkaline Phosphatase 102 (40-150) U/L C-Reactive Protein < 0.5 L (0.5-1.0) mg/dL Total Protein 6.5 (6.0-8.3) g/dL Albumin 4.0 (3.3-5.0) g/dL Amylase 50 (18-89) U/L SARS-CoV-2 (PCR) POSITIVE SARS-CoV-2 A (Negative) Influenza Type A (PCR) Negative PCR FLU A (Negative) Influenza Type B (PCR) Negative PCR FLU B (Negative) RSV (PCR) Negative PCR RSV (Negative) <Michael Combs MD - Last Filed: 10/29/23 15:13> Lab Results 10/29/23 Range/Units 15:15 WBC 6.97 (4.50-11.00) K/uL RBC 4.80 (4.00-5.20) m/uL Hgb 13.3 (12.0-16.0) gm/dL Hct 40.5 (33.0-51.0) % MCV 84 (80-100) fL MCH 28 (26-34) pg MCHC 33 (32-36) gm/dL RDW Coeff of Cailin 13.2 (11.5-15.5) % Plt Count 193 (140-440) K/uL Neut % (Auto) 71.2 (42.0-72.0) % Lymph % (Auto) 18.7 L (20-44) % [place] % (Auto) 7.9 (0.0-11.0) % Eos % (Auto) 2.0 (0.0-7.0) % Baso % (Auto) 0.1 (0.0-3.0) % Neut # (Auto) 4.96 (1.7-7.0) K/uL Lymph # (Auto) 1.30 (0.90-2.90) K/uL [place] # (Auto) 0.60 (0.00-0.90) K/UL Eos # (Auto) 0.14 (0.00-0.50) K/uL Baso # (Auto) 0.01 (0.00-0.30) K/uL Abs Immat Gran (auto) 0.01 (0.00-0.30) K/uL Imm/Tot Granulo (auto) 0.1 % Sodium 139 (135-149) mmol/L Potassium 3.7 (3.6-5.1) mmol/L Chloride 107 (96-114) mmol/L Carbon Dioxide 28 (20-32) mmol/L Anion Gap 4 L (7-15) mEq/L BUN 20 (7-30) mg/dL Creatinine 0.7 (0.5-1.5) mg/dL Estimated Creat Clear 44.10 Estimated GFR 89 ml/min Glucose 105 (60-115) mg/dL Calcium 9.4 (8.4-10.6) mg/dL Total Bilirubin 0.9 (0.1-1.5) mg/dL Direct Bilirubin 0.3 (0.0-0.5) mg/dL AST 27 (12-35) U/L ALT 24 (4-35) U/L Alkaline Phosphatase 102 (40-150) U/L C-Reactive Protein < 0.5 L (0.5-1.0) mg/dL Total Protein 6.5 (6.0-8.3) g/dL Albumin 4.0 (3.3-5.0) g/dL Amylase 50 (18-89) U/L SARS-CoV-2 (PCR) POSITIVE SARS-CoV-2 A (Negative) Influenza Type A (PCR) Negative PCR FLU A (Negative) Influenza Type B (PCR) Negative PCR FLU B (Negative) RSV (PCR) Negative PCR RSV (Negative) <Adonis Rich DO - Last Filed: 10/29/23 16:47> Imaging Data CT scan abdomen pelvis: Attestation: I have reviewed the pertinent imaging results. <Adonis Rich DO - Last Filed: 10/29/23 16:47> Radiologist's impression: 1. Cholelithiasis versus sludge without CT evidence of acute cholecystitis. 2. Mild submucosal edema of the descending and sigmoid colon may represent infection or inflammation, though this may be accentuated by underdistention. Please note that all CT scans at this facility use dose modulation, iterative reconstruction, and/or weight-based dosing when appropriate to reduce radiation dose to as low as reasonably achievable. Dictated by Geremias Caldwell MD @ 10/29/2023 4:35:39 PM <Adonis Rich DO - Last Filed: 10/29/23 16:47> Discharge Plan Discharge Clinical Impression: Diarrhea, Abdominal pain <Michael Combs MD - Last Filed: 10/29/23 15:13> Patient Disposition: Home, Self-Care <Michael Combs MD - Last Filed: 10/29/23 15:13> Condition: Improved <Michael Combs MD - Last Filed: 10/29/23 15:13> Additional Instructions: Light activity, yogurt daily, will call you with the results of your stool analysis. Recheck with regular doctor next 3-4 days. Return to ED sooner problems concerns worsening. CT scan did show some possible gallstones. If you have persistent right upper quadrant abdominal pain that worsens with eating it would be reasonable to follow up outpatient with General surgery. <Michael Combs MD - Last Filed: 10/29/23 15:13> Activity Level: Light activity <Michael Combs MD - Last Filed: 10/29/23 15:13> Light activity <Adonis Rich DO - Last Filed: 10/29/23 16:47> Discharge Diet: Regular <Michael Combs MD - Last Filed: 10/29/23 15:13> Regular <Adonis Rich DO - Last Filed: 10/29/23 16:47> Prescriptions: No Action No Known Home Medications <Michael Combs MD - Last Filed: 10/29/23 15:13> Follow Up/Referrals: Chris Garcia MD [Primary Care Provider] - <Michael Combs MD - Last Filed: 10/29/23 15:13> Stand Alone Forms: My[facility] Info Instructions <Michael Combs MD - Last Filed: 10/29/23 15:13>
[2023-10-29] MEDS: 0.9 % SODIUM CHLORIDE 1000 ml 1,000 ML IV (15:15)
[2023-10-29 15:23] LABS: Basophils Absolute Auto 0.01 K/uL (0.00-0.30); Basophils Percent Auto 0.1 % (0.0-3.0); Eosinophils Absolute Auto 0.14 K/uL (0.00-0.50); Hematocrit 40.5 % (33.0-51.0); Hemoglobin* 13.3 gm/dL (12.0-16.0); Immature Granulocytes Abs Auto 0.01 K/uL (0.00-0.30); Immature Granulocytes Pct Auto 0.1 %; Lymphocytes Percent Auto 18.7 % (20-44); Mean Corpuscular HGB Conc 33 gm/dL (32-36); Mean Corpuscular Hemoglobin 28 pg (26-34); Mean Corpuscular Volume 84 fL (80-100); Monocytes Percent Auto 7.9 % (0.0-11.0); Neutrophils Absolute Auto 4.96 K/uL (1.7-7.0); Neutrophils Percent Auto 71.2 % (42.0-72.0); Platelet Count* 193 K/uL (140-440); RDW Coefficient of Variation % 13.2 % (11.5-15.5); White Blood Count* 6.97 K/uL (4.50-11.00)
[2023-10-29 15:26] VITALS: BP 130/92; PULSE 53; RESP 14; O2SAT 96
[2023-10-29 15:30] VITALS: BP 136/76; PULSE 60; RESP 16; O2SAT 94
[2023-10-29 15:32] LABS: Slide Review Reflex No
[2023-10-29 15:34] LABS: Chloride* 107 mmol/L (96-114)
[2023-10-29 15:35] LABS: Potassium* 3.7 mmol/L (3.6-5.1); Sodium* 139 mmol/L (135-149)
[2023-10-29 15:37] LABS: Amylase* 50 U/L (18-89)
[2023-10-29 15:38] LABS: Alanine Aminotransferase* 24 U/L (4-35); Alkaline Phosphatase* 102 U/L (40-150); Anion Gap 4 mEq/L (7-15); Aspartate Amino Transferase* 27 U/L (12-35); Bilirubin Direct* 0.3 mg/dL (0.0-0.5); Bilirubin Total* 0.9 mg/dL (0.1-1.5); Blood Urea Nitrogen* 20 mg/dL (7-30); Calcium* 9.4 mg/dL (8.4-10.6); Carbon Dioxide* 28 mmol/L (20-32); Creatinine* 0.7 mg/dL (0.5-1.5); Estimated Glomerular Filt Rate 89 ml/min; Glucose* 105 mg/dL (60-115); Total Protein* 6.5 g/dL (6.0-8.3)
[2023-10-29 15:44] LABS: C Reactive Protein* < 0.5 mg/dL (0.5-1.0)
[2023-10-29 16:29] LABS: PCR FLU A Negative PCR FLU A (Negative); PCR FLU B Negative PCR FLU B (Negative); PCR RSV Negative PCR RSV (Negative); SARS PCR* POSITIVE SARS-CoV-2 (Negative)
[2023-10-29 16:31] VITALS: BP 147/81; PULSE 60; RESP 14; O2SAT 98
[2023-10-29 17:14] VITALS: BP 113/74; PULSE 64; RESP 14; TEMP 36.6
[2023-10-30 12:40] LABS: C.Difficile Negative (Negative); CDIFFEPI 027 PRESUMPTIVE NEGATIVE (Negative)
[2023-11-04 15:41] LABS: Ova and Parasite, Fecal Negative (Negative)
== END 2023-10-29 17:15 | disposition home or self-care (01) ==
PROVIDERS: Family Medicine; Emergency Provider Student in an Organized Health Care Education/Training Program; PCP Family Medicine
DX: R19.7 Diarrhea, unspecified (principal); R10.9 Unspecified abdominal pain
CPT/HCPCS: 36415; 74177; 80048; 80076; 82150; 85025; 86140; 87045; 87046; 87077; 87147; 87177; 87209; 87427; 87493; 87631; 96360; 99283; 99284; 99285; J7030; Q9967

== ENCOUNTER 2024-05-10 08:24 | Outpatient (CLI) | payer MEDICARE, SELFPAY ==
--- OUTSIDE RECORDS SUMMARY | 2024-05-10 08:28 | XMS_ITS | Encounter Summary ---
Author Organization [facility] Address [address] [place] [address] Care Team Providers Care Transfer Table Operator Name Role Phone Bernadette Aldana MD Primary Care Provider Unavailab le Reason for Visit * Reason Onset Date Comments Referral 03/19/2019 New Eval Encounter Details Date Type Department Care Team (Late st Contact Info) Description 03/19/2019 Telephone [facility] [address] [place] [address] Pain Management Program, [facility] Referral (New Eval ) Social History [...] to schedule a new eval. Whitney Rendon Satellite Specialist [facility] * Telephone Encounter - Jenny Washington - 03/19/2019 2:12 PM CDT Referral received from Aditi Fraga NP at [facility] for a comprehensive evaluationand management. Diagnosis - Lumbar radicular pain with previous lumbar fusion Routing for scheduling. Jenny Washington Satellite Specialist [facility] documented in this encounter Plan of Treatment Not on file documented as of this encounter Visit Diagnoses Not on filedocumented in this encounter Care Teams Transfer Table Operator Relationship Specialty Start Date End Date Bernadette Aldana MD PCP - General Family Practice 03/06/19 documented as of this encounter
--- OUTSIDE RECORDS SUMMARY | 2024-05-10 08:28 | XMS_ITS | Clinical Summary ---
Author Organization [facility] Address [place], [place] [address] Care Team Providers Care Final Cleaner Name Role Phone Viviana Zuniga AuD Unavailable [phone] Allergies No known active allergies Medications Medication Sig Dispensed Refills Start Date End Date Status Incontinence Pad, Liner, Disp padsIndications:Urin venkatesh incontinence, unspecified type 1 Package 04/28/2017 Active albuterol (PROVENTIL) 0.083 % neb solutionIndications: SOB (shortness of breath) Inhale 3 mL (2.5 mg) via a nebulizer every 6 hours if needed for Cough 1st choice. 180 mL 07/22/2022 Active NebulizerIndications :SOB (shortness of breath) Nebulizer, disposable neb kit x 4, reuseable neb kit x 1, mask x 1, filters x 1. Frequency of use: daily; Medication: albuterol Length of need: prn months 1 Each 07/22/2022 Active permethrin (ELIMITE) 5 % creamIndications:Alexandr h,Pruritus Apply to entire body from the neck down and leave on for 8 hours. Then rinse and repeat this in one week. 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 Constipation 12/26/2017 ACP (advance care planning) 12/19/2017 Overview (12/19/2017): Patient has identified Health Care Agent(s): Yes Add Health Care Agents: Yes Health Care Agent(s): Primary Health Care Agent: Dtr Relationship: Stephani Sellers Phone: W:[phone] Secondary Health Care Agent: Dtr Relationship: Thompson Saucedo Phone: [phone] Conservator: Relationship: Phone: Guardian: Relationship: Phone: Patient has Advance Care Plan Documents (Health Care Directive, POLST): Yes Advance Care Plan Documents: Health Care Directive Patient has identified Specific Treatment Preferences: Yes How have preferences been verified: HCD Specific Treatment Preferences: Please refer to HCD - Pt does not want CPR attempted if heart or breathing stops. 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 Recommend no intervention at this time If symptoms develop, consider cholecystectomy. Acosta Lang MD........06/11/2017......2:15 PM Chantale Nunez Physician Fatty liver 06/10/2017 Low HDL (under 40) 06/10/2017 High triglycerides 06/10/2017 Obesity (BMI 30-39.9) 06/10/2017 Hypothyroidism (acquired) 06/10/2017 Other constipation 06/10/2017 Seborrheic keratosis 06/03/2017 Overview (06/03/2017): Right breast Atypical chest pain 03/21/2016 FLORENCIO (obstructive sleep apnea) 03/21/2016 Overview (03/21/2016): AHI 13.0 on Home Sleep Test, WALE 11.4, snore index 8.6% Urinary incontinence 06/04/2013 Sensorineural hearing loss, bilateral 06/01/2013 Vitamin D deficiency 10/29/2012 Osteoporosis 10/23/2012 Impingement syndrome of left shoulder 08/25/2012 L4-5 disk bulge with annular tear and right leg pain 12/09/2011 Shingles rash vs. cutaneous herpes 04/18/2011 Overview (04/18/2011): pt reports recurrent outbreak R low back Dx H zoster/ Clinical sx suggest H simplex Gastric ulcer 04/18/2011 Overview (04/18/2011): 04/2011 Pt reports hx x 30-40 y, intermitt Hospitalized w/ bleeding ulcer in the Last diagnostic testing was Denies hx H pylori testing Uses prevacid prn Essential and other specified forms of tremor Overview (04/18/2011): Tx Mysoline Followed by Dr Strong, [facility] Advance care planning 03/27/2011 PVD (posterior vitreous [...] replacement, left 05/10/2011 Back pain 04/18/2011 11/06/2011 Overview (04/18/2011): MR lumbar spine 12/2010 : mild disc [...] Comments Blood Pressure 112/57 10/14/2022 7:59 AM UNDERWEAR HEMMER Pulse 55 10/14/2022 7:59 AM UNDERWEAR HEMMER Temperature 36.3 ??C (97.4 ??F) 08/27/2022 7:36 AM CS T Respiratory Rate 18 12/21/2017 7:23 AM CDT Oxygen Saturation 97% 08/27/2022 7:36 AM UNDERWEAR HEMMER Inhaled Oxygen Concentration - - Weight 103.7 kg (228 lb 11.2 oz) 08/27/2022 7:36 AM UNDERWEAR HEMMER Height 172.7 cm (5' 8) 11/28/2021 3:18 PM CDT Body Mass Index 34.77 11/28/2021 3:18 PM CDT Plan of Treatment Health Maintenance Due Date Last Done Comments Zoster (shingles) series for age 50+ (1 of 2) 07/25/2011 05/30/2011 Medicare Wellness for age 65+ 08/25/2013 08/24/2012 Depression screening for age 12+ 08/31/2020 08/31/2019, 05/21/2018, 05/18/2018, Additional history exists RSV vaccine for adults or (1 - 1-dose 75+ series) 2020 Tetanus booster 03/27/2021 03/27/2011, 04/11/1996 BMI (ht and wt on same day) for age 18+ 11/28/2022 11/28/2021, 12/05/2020, 09/20/2019, Additional history exists COVID-19 vaccine series ( season) 2024 01/17/2022, 06/15/2021, 10/26/2020, Additional history exists Influenza for age 65+ 04/11/2024 05/09/2020 , 06/02/2019, 05/26/2018, Additional history exists Tdap Completed 03/27/2011 DEXA/DXA scan for age 65+ Completed 2012, 09/01/2012, 10/30/2010 Pneumococcal series for age 65+ Completed 6, 08/24/2012 Hepatitis C screening for ag e 18-79 Completed 06/10/2017 Fecal testing non-DNA (FIT,FOBT,iFOBT) for age 45-75 Discontinued 01/07/2018, 10/12/2014 Medical Devices Implanted Type Area Rotogravure Press Operator Device Identifier Shelf Expiration Date Model / Serial / Lot Bone Matrix Xsm Infuse Bmp - [id number] Implanted:Qty: 1 on 12/18/2017 by Yoan New MD at [facility] N/A: Spine Medtronic Spine/Ortho 02/07/2019 [id number]# / / [id number] Screw Lmbr Post 5.5x55mm Solera 5.5/6 Va Cocr - [id number] Implanted:Qty: 2 on 12/18/2017 by Yoan New MD at [facility] N/A: Spine Medtronic Spine/Ortho [id number] 5# / / Scot Lmbr 60x5.5mm Solera 5.5/6cvd Co Cr - [id number] Implanted:Qty: 2 on 12/18/2017 by Yoan New MD at [facility] N/A: Spine Medtronic Spine/Ortho [id number] # / / Bone Matrix 10cc Progenix Putty Dbm - [id number] Implanted:Qty: 1 on 12/18/2017 by Yoan New MD at [facility] N/A: Spine Medtronic Spine/Ortho 03/21/2019 [id number]# / / [id number] Spacer Lmbr [id number] 8deg Mdsovereign Stand Alone - [id number] Implanted:Qty: 1 on 12/18/2017 by Yoan New MD at [facility] N/A: Spine Medtronic Spine/Ortho 08/19/2024 [id number]# / / 59DG Spacer Lmbr [id number] 8deg Mdsovereign Stand Alone - [id number] Implanted:Qty: 1 on 12/18/2017 by Yoan New MD at [facility] N/A: Spine Medtronic Spine/Ortho 01/29/2018 [id number]# / / [id number] Screw Lmbr 5.5x25mm Sovereign Stand Alone - [id number] Implanted:Qty: 4 on 12/18/2017 by Yaon New MD at [facility] N/A: Spine Medtronic Spine/Ortho [id number]# / / Screw Lmbr 5.5x20mm Sovereign Stand Alone - [id number] Implanted:Qty: 1 on 12/18/2017 by Yoan New MD at [facility] N/A: Spine Medtronic Spine/Ortho [id number]# / / Set Screw Lmbr Ant 5.5mm Solera Break Off - [id number] Implanted:Qty: 6 on 12/18/2017 by Yoan New MD at [facility] N/A: Spine Medtronic Spine/Ortho [id number]# / / Screw Lmbr Post 7.5x55mm Solera 5.5/6 Va Cocr - [id number] Implanted:Qty: 2 on 12/18/2017 by Yoan New MD at [facility] N/A: Spine Medtronic Spine/Ortho [id number] 5# / / Screw Lmbr Post 7.5x45mm Solera 5.5/6 Va Cocr - [id number] Implanted:Qty: 2 on 12/18/2017 by Yoan New MD at [facility] N/A: Spine Medtronic Spine/Ortho [id number] 5# / / Procedures Procedure Name Priority Date/Time Associated Diagnosis Comments OCCULT BLOOD IFOBT STOOL Routine 01/07/2018 2:56 PM CDT Screening for colorectal cancer ANTI HCV Routine 06/10/2017 9:30 AM CDT Fatty liver XR DXA BONE DENSITY 2 SITES AXIAL Routine 09/01/2012 9:54 AM UNDERWEAR HEMMER Kyphosis (acquired) (postural) Visit for preventive health examination from Last 3 Months or Most Recently Relevant to Health Maintenance Results * OCCULT BLOOD IFOBT STOOL (01/07/2018 2:56 PM CDT) STOOL BLOOD ,IFOBT Negative Negative 01/09/2018 3:10 PM CDT [facility] Stool STOOL SPECIMEN / Unknown Non-Blood / Unknown 01/07/2018 2:56 PM CDT 01/09/2018 2:56 PM CDT Bernadette Aldana MD LABORATORY [facility] [address] [place] [address], * ANTI HCV (06/10/2017 9:30 AM CDT) HEPATITIS C ANTIBODY Non-Reacti ve Non-Reacti ve 06/10/2017 4:16 PM CDT [facility] LABORATORY-[facility] TRAL LABORATORY Blood BLOOD SPECIMEN / Unknown Venipuncture / Unknown 06/10/2017 9:30 AM CDT 06/10/2017 9:30 AM CDT Narrative [facility] LABORATORY-CENTRAL LABORATORY - 06/10/2017 4:16 PM CDT Antibodies to HCV not detected; does not exclude the possibility of exposure to HCV. Acosta Lang MD SEND OUTS [facility]-CENTRAL LABORATORY [address] [place] [address], [place] * XR DEXA BONE DENSITY 2 SITES (09/01/2012 9:54 AM UNDERWEAR HEMMER) Anatomical Region Laterality Modality Spine, HIPS, HIPL, HIPR Computed Radiography Impressions 09/01/2012 4:39 PM UNDERWEAR HEMMER ??This patient's T-score meets the World Health Organization (WHO) criteria for osteoporosis at one or more measured sites (T-score -2.5 or below). ??The risk of osteoporotic fracture increases approximately two-fold for each 1.0 SD decrease in T-score. FRAX is not reported because this patient's T-score meets the World Health Organization (WHO) criteria for osteoporosis. The scan details are available in the patient? s chart in [facility]. Aditi Aldana M.D. ? Breast/Body Radiologist [facility] [email or web address] / Narrative 09/01/2012 4:39 PM UNDERWEAR HEMMER DIAGNOSTIC DXA BONE MINERAL DENSITY CLINICAL HISTORY: ??This is a 66-year-old female patient. ??The patient has had a loss of height by more than 1 inch, has a history of osteoporosis based on a prior BMD study, and has a personal history of a fragility fracture. RISK FACTORS FOR LOW BONE MINERAL DENSITY/FRAGILITY FRACTURES: ??The patient has estrogen deficiency. ??The patient has the following medical condition(s): ??Vitamin D deficiency. TECHNIQUE: ??The patient was scanned on a [employer]. ??The study was technically adequate but compromised by metal artifact in the right hip. ?? The following sites were used for analysis: ??PA lumbar spine: ??L1 to L4, Left hip: ??Femoral neck, and Radius 33% (also called the 1/3 radius). ??The right hip was not scanned due to metal artifact. FINDINGS: BMD T-Score Z-Score Lumbar Spine (L1 to L4) 0.914 g/cm2 -2.2 -1.8 Left Hip (Femoral neck) 1.025 g/cm2 -0.1 0.7 Radius 0.613 g/cm2 -3.0 -1.5 Procedure Note Aditi Aldana MD - 09/01/2012 DIAGNOSTIC DXA BONE MINERAL DENSITY CLINICAL HISTORY: This is a 66-year-old female patient. The patient hashad a loss of height by more than 1 inch, has a history of osteoporosisbased on a prior BMD study, and has a personal history of a fragilityfracture. RISK FACTORS FOR LOW BONE MINERAL DENSITY/FRAGILITY FRACTURES: Thepatient has estrogen deficiency. The patient has the following medicalcondition(s): Vitamin D deficiency. TECHNIQUE: The patient was scanned on a [employer]. The study wastechnically adequate but compromised by metal artifact in the right hip.The following sites were used for analysis: PA lumbar spine: L1 to L4,Left hip: Femoral neck, and Radius 33% (also called the 1/3 radius). Theright hip was not scanned due to metal artifact. FINDINGS: BMD T-Score Z-Score Lumbar Spine (L1 to L4) 0.914 g/cm2 -2.2 -1.8 Left Hip (Femoral neck) 1.025 g/cm2 -0.1 0.7 Radius 0.613 g/cm2 -3.0 -1.5 IMPRESSION: This patient's T-score meets the World Health Organization(WHO) criteria for osteoporosis at one or more measured sites (T-score-2.5 or below). The risk of osteoporotic fracture increases approximatelytwo-fold for each 1.0 SD decrease in T-score. FRAX is not reported because this patient's T-score meets the World HealthOrganization (WHO) criteria for osteoporosis. The scan details are [facility] the patient? [facility]. Aditi Aldana M.D. Breast/Body Radiologist [employer]. [email or web address] / [employer] [place] DEXA from Last 3 Months or Most Recently Relevant to Health Maintenance Advance Directives Documents on File Type Date Recorded Patient Warehouse Order Picker Expl anation Healthcare Directive 01/13/2018 12:57 PM DN R REQUEST FORM, DESIRE MERCADO, 01/06/18 POLST 01/13/2018 12:56 PM DESIRE GAMBINO, 01/06/18 Healthcare Directive 12/19/2017 6:59 PM Healthcare Directive 12/18/2017 12:00 AM * Full Code (Latest Code Status on File) Date Activated Date Inactivated Comments 12/18/2017 5:35 AM 12/21/2017 2:04 PM * Full Code Date Activated Date Inactivated Comments 11/03/2012 11:20 AM 11/03/2012 3:27 PM * Full Code Date Activated Date Inactivated Comments 11/03/2012 7:10 AM 11/03/2012 11:20 AM Care Teams Final Cleaner Relationship Specialty Start Date End Date Viviana Zuniga AuD Audiology 06/01/13
--- OUTSIDE RECORDS SUMMARY | 2024-05-10 08:28 | XMS_ITS | Clinical Summary ---
Author Organization [place] Address [address] [facility] [place] [address] Care Team Providers Care Hi Lift Operator Name Role Phone Bernadette Aldana MD Primary Care Provider Unavailab le Allergies No known active allergies Medications Medication Sig Dispensed Refills Start Date End Date Status CYCLOBENZAPRINE HCL PO Take by mouth. Active oxyCODONE-acetaminoph en (PERCOCET) 5-325 MG per [...] as needed for severe pain 12 tablet 03/06/2019 Active Social History Tobacco Use Types [...] of Treatment Not on file Care Teams Hi Lift Operator Relationship Specialty Start Date End Date Bernadette Aldana MD PCP - General Family Practice 03/06/19
--- OUTSIDE RECORDS SUMMARY | 2024-05-10 08:28 | XMS_ITS | Referral Summary ---
Author Organization [place] Address [address] [facility] [place] [address] Care Team Providers Care Trolley Car Operator Name Role Phone Bernadette Aldana MD [...] of Treatment Not on file Care Teams Trolley Car Operator Relationship Specialty Start Date End Date Bernadette Aldana MD PCP - General Family Practice 03/06/19
== END 2024-05-10 08:25 | disposition home or self-care (01) ==
PROVIDERS: PCP Family Medicine; Visit Provider Family Medicine
DX: R19.7 Diarrhea, unspecified (principal)
CPT/HCPCS: 80053; 84443; 86140; 87045; 87046; 87329; 87427; 87493

== ENCOUNTER 2024-05-15 10:11 | Emergency (ER) | payer OTHER, SELFPAY ==
[2024-05-15 10:26] VITALS: BP 128/79; PULSE 63; RESP 18; TEMP 36.3; O2SAT 97; BMI 38.1
--- OUTSIDE RECORDS SUMMARY | 2024-05-15 11:41 | XMS_ITS | Referral Summary ---
Author Organization [place] Address [address] [facility] [place] [address] Care Team Providers Care Cell Tuber Machine Name Role Phone Bernadette Aldaan MD Primary Care Provider Unavailab le Allergies [...] of Treatment Not on file Care Teams Cell Tuber Machine Relationship Specialty Start Date End Date Bernadette Aldana MD PCP - General Family Practice 03/06/19
--- OUTSIDE RECORDS SUMMARY | 2024-05-15 11:41 | XMS_ITS | Encounter Summary ---
Author Organization [facility] Address [address] [facility] [place] [address] Care Team Providers Care Tier Over Name Role Phone Bernadette Aldana MD Primary Care Provider Unavailab le Reason for Visit * Reason Onset Date Comments Referral 03/19/2019 New Eval Encounter Details Date Type Department Care Team (Late st Contact Info) Description 03/19/2019 Telephone [facility] [address] [place] [address] Pain Management Program, [facility] Referral (New Eval ) Social History [...] to schedule a new eval. Whitney Rendon Stained Glass Gl[facility]ier [facility] * Telephone Encounter - Jenny Washington - 03/19/2019 2:12 PM CDT Referral received from Aditi Fraga NP at [facility] for a comprehensive evaluationand management. Diagnosis - Lumbar radicular pain with previous lumbar fusion Routing for scheduling. Jenny Washington Stained Glass Gl[facility]ier [facility] documented in this encounter Plan of Treatment Not on file documented as of this encounter Visit Diagnoses Not on filedocumented in this encounter Care Teams Tier Over Relationship Specialty Start Date End Date Bernadette Aldana MD PCP - General Family Practice 03/06/19 documented as of this encounter
--- OUTSIDE RECORDS SUMMARY | 2024-05-15 11:41 | XMS_ITS | Clinical Summary ---
Author Organization [place] Address [address] [facility] [place] [address] Care Team Providers Care Dishwasher Busser Name Role Phone Bernadette Aldana MD Primary [...] of Treatment Not on file Care Teams Dishwasher Busser Relationship Specialty Start Date End Date Bernadette Aldana MD PCP - General Family Practice 03/06/19
--- OUTSIDE RECORDS SUMMARY | 2024-05-15 11:41 | XMS_ITS | Clinical Summary ---
Author Organization [facility] Address [place], [place] [address] Care Team Providers Care Electric Meter Repairer Name Role Phone Viviana Zuniga AuD Unavailable Allergies No known active allergies Medications Medication [...] Care Agent: Dtr Relationship: Stephani Sellers Phone: W:[phone] Secondary Health Care Agent: Dtr Relationship: Thompson Saucedo Phone: [phone] Conservator: Relationship: Phone: Guardian: Relationship: Phone: Patient has Advance Care Plan Documents (Health Care Directive, POLST): Yes Advance Care Plan Documents: Health Care Directive Patient has identified Specific Treatment Preferences: Yes How have preferences been verified: HCD Specific Treatment Preferences: Please refer to HCD - Pt does not want CPR attempted if heart or breathing stops. Amira Saucedo, [facility], 12/19/2017 2:10 PM [id number] Lumbar stenosis 12/18/2017 Overview (09/20/2019): S/p lumbar fusion Dyslipidemia (high LDL; low HDL) 06/11/2017 Overview (06/11/2017): AHA risk 8.2%, [place] risk 9.9%, recommend visit to discuss pros/cons [...] (04/18/2011): Tx Mysoline Followed by Dr Strong, [facility] Advance care planning 03/27/2011 PVD (posterior [...] Comments Blood Pressure 112/57 10/14/2022 7:59 AM CORRESPONDENCE REPRESENTATIVE Pulse 55 10/14/2022 7:59 AM CORRESPONDENCE REPRESENTATIVE Temperature 36.3 ??C (97.4 ??F) 08/27/2022 7:36 AM CS T Respiratory Rate 18 12/21/2017 7:23 AM CDT Oxygen Saturation 97% 08/27/2022 7:36 AM CORRESPONDENCE REPRESENTATIVE Inhaled Oxygen Concentration - - Weight 103.7 kg (228 lb 11.2 oz) 08/27/2022 7:36 AM CORRESPONDENCE REPRESENTATIVE Height 172.7 cm (5' 8) 11/28/2021 3:18 [...] 01/07/2018, 10/12/2014 Medical Devices Implanted Type Area Carroting Machine Operator Device Identifier Shelf Expiration Date Model / Serial / Lot Bone Matrix Xsm Infuse Bmp - [id number] Implanted:Qty: 1 on 12/18/2017 by Yoan New MD at [facility] N/A: Spine Medtronic Spine/Ortho 02/07/2019 [id number]# / / [id number] Screw Lmbr Post 5.5x55mm Solera 5.5/6 Va Cocr - [id number] Implanted:Qty: 2 on 12/18/2017 by Yoan New MD at [facility] N/A: Spine Medtronic Spine/Ortho [id number] 5# / / Scot Lmbr 60x5.5mm Solera 5.5/6cvd Co Cr - [id number] Implanted:Qty: 2 on 12/18/2017 by Yoan New MD at [facility] N/A: Spine Medtronic Spine/Ortho [id number] # / / Bone Matrix 10cc Progenix Putty Dbm - [id number] Implanted:Qty: 1 on 12/18/2017 by Yoan New MD at [facility] N/A: Spine Medtronic Spine/Ortho 03/21/2019 [id number]# / / [id number] Spacer Lmbr [id number] 8deg Mdsovereign Stand Alone - [id number] Implanted:Qty: 1 on 12/18/2017 by Yoan New MD at [facility] N/A: Spine Medtronic Spine/Ortho 08/19/2024 [id number]# / / 59DG Spacer Lmbr [id number] 8deg Mdsovereign Stand Alone - [id number] Implanted:Qty: 1 on 12/18/2017 by Yoan New MD at [facility] N/A: Spine Medtronic Spine/Ortho 01/29/2018 [id number]# / / [id number] Screw Lmbr 5.5x25mm Sovereign Stand Alone - [id number] Implanted:Qty: 4 on 12/18/2017 by Yoan New MD at [facility] N/A: Spine Medtronic Spine/Ortho [id number]# / / Screw Lmbr 5.5x20mm Sovereign Stand Alone - [id number] Implanted:Qty: 1 on 12/18/2017 by Yoan New MD at [facility] N/A: Spine Medtronic Spine/Ortho [id number]# / / Set Screw Lmbr Ant 5.5mm Solera Break Off - [id number] Implanted:Qty: 6 on 12/18/2017 by Yoan New MD at [facility] N/A: Spine Medtronic Spine/Ortho [id number]# / / Screw Lmbr Post 7.5x55mm Solera 5.5/6 Va Cocr - [id number] Implanted:Qty: 2 on 12/18/2017 by Yoan New MD at [facility] N/A: Spine Medtronic Spine/Ortho [id number] 5# / / Screw Lmbr Post 7.5x45mm Solera 5.5/6 Va Cocr - [id number] Implanted:Qty: 2 on 12/18/2017 by Yoan New MD at [facility] N/A: Spine Medtronic Spine/Ortho [id number] 5# / / Procedures Procedure Name Priority Date/Time Associated Diagnosis Comments OCCULT BLOOD IFOBT STOOL Routine 01/07/2018 2:56 PM CDT Screening for colorectal cancer ANTI HCV Routine 06/10/2017 9:30 AM CDT Fatty liver XR DXA BONE DENSITY 2 SITES AXIAL Routine 09/01/2012 9:54 AM CORRESPONDENCE REPRESENTATIVE Kyphosis (acquired) (postural) Visit for preventive health examination from Last 3 Months or Most Recently Relevant to Health Maintenance Results * OCCULT BLOOD IFOBT STOOL (01/07/2018 2:56 PM CDT) STOOL BLOOD ,IFOBT Negative Negative 01/09/2018 3:10 PM CDT [facility] Stool STOOL SPECIMEN / Unknown Non-Blood / Unknown 01/07/2018 2:56 PM CDT 01/09/2018 2:56 PM CDT Bernadette Aldana MD LABORATORY [facility] [address] [place] [address], * ANTI HCV (06/10/2017 9:30 AM CDT) HEPATITIS C ANTIBODY Non-Reacti ve Non-Reacti ve 06/10/2017 4:16 PM CDT [facility] LABORATORY-[facility] TRAL LABORATORY Blood BLOOD SPECIMEN / Unknown Venipuncture / Unknown 06/10/2017 9:30 AM CDT 06/10/2017 9:30 AM CDT Narrative [facility] LABORATORY-CENTRAL LABORATORY - 06/10/2017 4:16 PM CDT Antibodies to HCV not detected; does not exclude the possibility of exposure to HCV. Acosta Lang MD SEND OUTS [facility] LAB[facility] [address] [place] [address], [place] * XR DEXA BONE DENSITY 2 SITES (09/01/2012 9:54 AM CORRESPONDENCE REPRESENTATIVE) Anatomical Region Laterality Modality Spine, HIPS, HIPL, HIPR Computed Radiography Impressions 09/01/2012 4:39 PM CORRESPONDENCE REPRESENTATIVE ??This patient's T-score meets the World Health [...] available in the patient? s chart in [facility]. Aditi Aldana M.D. ? Breast/Body Radiologist [facility] [employer] [email or web address] / Narrative 09/01/2012 4:39 PM CORRESPONDENCE REPRESENTATIVE DIAGNOSTIC DXA BONE MINERAL DENSITY CLINICAL HISTORY: [...] TECHNIQUE: ??The patient was scanned on a [employer]. ??The study was technically adequate but compromised [...] TECHNIQUE: The patient was scanned on a [employer]. The study wastechnically adequate but compromised by [...] available in the patient? [facility]. Aditi Aldana M.D. Breast/Body Radiologist [employer]. [email or web address] / [employer] [place] DEXA from Last 3 Months or Most Recently Relevant to Health Maintenance Advance Directives Documents on File Type Date Recorded Patient Telephone Claims Representative Expl anation Healthcare Directive 01/13/2018 12:57 PM [...] 7:10 AM 11/03/2012 11:20 AM Care Teams Electric Meter Repairer Relationship Specialty Start Date End Date Viviana Zuniga AuD Audiology 06/01/13
== END 2024-05-15 11:49 | disposition left against medical advice (07) ==
LOC: ED 11:39
PROVIDERS: Emergency Provider Emergency Medicine Emergency Medical Services; PCP Family Medicine
DX: Z53.21 Procedure and treatment not carried out due to patient leaving prior to being seen by health care provider (principal)

== ENCOUNTER 2024-05-16 07:39 | Emergency (ER) | payer MEDICARE, SELFPAY ==
[2024-05-16 07:44] VITALS: BP 128/80; PULSE 64; RESP 18; TEMP 36.1; O2SAT 99; BMI 38.1
--- NOTE | 2024-05-16 08:27 | ED.GENADULT ---
HPI - General Adult General Date Seen: 05/16/24 Chief complaint: Unspecified Complaint, Adult Stated complaint: right breast concern Time Seen by Provider: 05/16/24 08:27 Source: patient Mode of arrival: ambulatory Limitations: no limitations History of Present Illness HPI narrative: Patient is a 78-year-old female presenting for a rash to her right breast. She states she 1st started noticing a rash on the lateral aspect of the right breast on Friday and since she has been noticing more lesions to the medial aspect of the same breast. States it is painful and the pain did start before the rash appeared. Has not had any fevers or chills. Has some concern for breast cancer she has not had a previous mammogram in several years. Has not noticed a rash in your hours. Denies weakness, numbness, headache, vision changes, chest pain, shortness of breath. No other concerns noted at this time. States the pain feels like it is right under the skin. Related Data Previous Rx's ?Medication ?Instructions ?Recorded acyclovir 800 mg tablet 800 mg PO 5XD 7 days #35 tabs 05/16/24 Allergies Allergy/AdvReac Type Severity Reaction Status Date / Time No Known Drug Allergies Allergy Verified 05/10/24 07:37 Review of Systems Narrative: Pertinent systems reviewed and were negative unless stated in HPI PFSH PFSH Surgical History Status post right knee replacement ?Z96.651 - Presence of right artificial knee joint (ICD-10) Status post lumbar spinal fusion ?Z98.1 - Arthrodesis status (ICD-10) Family History Family/Other Colon cancer Social History Narrative: Has a male roommate, nonsmoker, 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 Smoking Status: Never smoker Do you use any of these nicotine containing products: None Second hand tobacco smoke exposure: No How often do you have a drink containing alcohol: never How often do you have six or more drinks on one occasion: Never AUDIT-C Alcohol total score: 0 Non-prescribed substance use: denies use Little interest or pleasure in doing things: not at all Feeling down, depressed, or hopeless: not at all service: No Exam Narrative: Exam Narrative: Const: Well-nourished, Well-developed, in mild distress Eyes: PERRL, no conjunctival injection, and symmetrical lids HENT: Atraumatic external nose and ears. Moist mucous membranes. MSK:Extremities w/o deformity, Normal Active ROM Skin: Warm, Dry. No rashes or lesions. Vesicular appearing rash to the right breast as appears to follow a single dermatome. Does not cross midline Neuro: Normal Muscle tone, No focal neurological deficits. Psych: Awake, Alert, & Oriented x3. Appropriate mood and affect. Const: Vital Signs, click to edit/add: Vital Signs - 24 hr 05/16/24 07:44 Temperature 97 F L Pulse Rate [Pulse Oximeter] 64 Respiratory Rate 18 Blood Pressure [Ri ght Upper Arm] 128/80 Pulse Oximetry 99 Oxygen Delivery Me thod Room Air Course Vital Signs Vital signs: Initial Vital Signs Temperature 97 F L 05/16/24 07:44 Temperature Source Temporal Artery Scan 05/16/24 07:44 Pulse Rate 64 05/16/24 07:44 Respiratory Rate 18 05/16/24 07:44 Blood Pressure 128/80 05/16/24 07:44 Blood Pressure Mean 96 05/16/24 07:44 Pulse Oximetry 99 05/16/24 07:44 Oxygen Delivery Method Room Air 05/16/24 07:44 Vital Signs Temperature 97 F L 05/16/24 07:44 Pulse Rate 64 05/16/24 07:44 Respiratory Rate 18 05/16/24 07:44 Blood Pressure 128/80 05/16/24 07:44 Pulse Oximetry 99 05/16/24 07:44 Oxygen Delivery Method Room Air 05/16/24 07:44 Temperature 97 F L 05/16/24 07:44 Pulse Rate 64 05/16/24 07:44 Respiratory Rate 18 05/16/24 07:44 Blood Pressure 128/80 05/16/24 07:44 Pulse Oximetry 99 05/16/24 07:44 Oxygen Delivery Method Room Air 05/16/24 07:44 Medical Decision Making MDM Narrative Medical decision making narrative: Patient is a 78-year-old female presenting for right breast rash. Based on my exam this appears to be shingles. The pain started before the rash appeared, it appears to follow a single dermatome, it appears to have vesicles, it does not cross midline. Concern all this I do believe it is shingles. She is not having ear or eye discomfort and it appears to only be 1 dermatome so more concerning disseminated herpes zoster is unlikely. Much less likely to be a fungal rash. Will start her on acyclovir as new vesicles have been forming over the past 3 days. She is also complaining about pain and I spoke to her about oxycodone which I will prescribe. I did inform her about the risks associated with oxycodone she states she understands. Discharge Plan Discharge Clinical Impression: Herpes zoster Qualifiers: Herpes zoster complications: without complications Qualified Code(s): B02.9 - Zoster without complications Patient Disposition: Home, Self-Care Condition: Stable Instructions: Shingles (ED) Additional Instructions: Use the acyclovir as directed. Follow-up with the primary care provider symptoms are not improving in a week. Take Tylenol and ibuprofen for pain and if f that is not helping try the oxycodone. Of note oxycodone can increase your risk of falls so be careful when taking it Prescriptions: New acyclovir 800 mg tablet 800 mg PO 5XD 7 Days Qty: 35 0RF Rx Instructions: space evenly during waking hours Follow Up/Referrals: Chris Garcia MD [Primary Care Provider] - Stand Alone Forms: [facility] Info Instructions
--- OUTSIDE RECORDS SUMMARY | 2024-05-16 08:32 | XMS_ITS | Clinical Summary ---
Author Organization [facility] Address [place], [place] [address] Care Team Providers Care Hood Maker Name Role Phone Viviana Zuniga AuD Unavailable [phone] Allergies No known active allergies Medications Medication [...] Care Agent: Dtr Relationship: Stephani Sellers Phone: W:[phone] ext [phone] Secondary Health Care Agent: Dtr Relationship: Thompson Saucedo Phone: M:[phone] Conservator: Relationship: Phone: Guardian: Relationship: Phone: Patient has Advance Care Plan Documents (Health Care Directive, POLST): Yes Advance Care Plan Documents: Health Care Directive Patient has identified Specific Treatment Preferences: Yes How have preferences been verified: HCD Specific Treatment Preferences: Please refer to HCD - Pt does not want CPR attempted if heart or breathing stops. Amira Saucedo, [facility], 12/19/2017 2:10 PM [id number] Lumbar stenosis 12/18/2017 Overview (09/20/2019): S/p lumbar fusion Dyslipidemia (high LDL; low HDL) 06/11/2017 Overview (06/11/2017): AHA risk 8.2%, Thurston risk 9.9%, recommend visit to discuss pros/cons [...] (04/18/2011): [place] Followed by Dr Strong, [facility] Advance care planning 03/27/2011 PVD [...] Comments Blood Pressure 112/57 10/14/2022 7:59 AM CYBER SECURITY CONSULTANT Pulse 55 10/14/2022 7:59 AM CYBER SECURITY CONSULTANT Temperature 36.3 ??C (97.4 ??F) 08/27/2022 7:36 AM CS T Respiratory Rate 18 12/21/2017 7:23 AM CDT Oxygen Saturation 97% 08/27/2022 7:36 AM CYBER SECURITY CONSULTANT Inhaled Oxygen Concentration - - Weight 103.7 kg (228 lb 11.2 oz) 08/27/2022 7:36 AM CYBER SECURITY CONSULTANT Height 172.7 cm (5' 8) 11/28/2021 3:18 [...] 01/07/2018, 10/12/2014 Medical Devices Implanted Type Area Senior Clinical Research Associate Device Identifier Shelf Expiration Date Model / Serial / Lot Bone Matrix Xsm Infuse Bmp - [id number] Implanted:Qty: 1 on 12/18/2017 by Yoan New MD at [facility] N/A: Spine Medtronic Spine/Ortho 02/07/2019 [id number] / / [id number] Screw Lmbr Post 5.5x55mm Solera 5.5/6 Va Cocr - [id number] Implanted:Qty: 2 on 12/18/2017 by Yoan New MD at [facility] N/A: Spine Medtronic Spine/Ortho [id number]# / / Scot Lmbr 60x5.5mm Solera 5.5/6cvd Co Cr - [id number] Implanted:Qty: 2 on 12/18/2017 by Yoan New MD at [facility] N/A: Spine Medtronic Spine/Ortho [id number] # / / Bone Matrix 10cc Progenix Putty Dbm - [id number] Implanted:Qty: 1 on 12/18/2017 by Yoan New MD at [facility] N/A: Spine Medtronic Spine/Ortho 03/21/2019 [id number]# / / [id number] Spacer Lmbr [id number] 8deg Mdsovereign Stand Alone - [id number] Implanted:Qty: 1 on 12/18/2017 by Yoan New MD at [facility] N/A: Spine Medtronic Spine/Ortho 08/19/2024 [id number]# / / 59DG Spacer Lmbr [id number] 8deg Mdsovereign Stand Alone - [id number] Implanted:Qty: 1 on 12/18/2017 by Yoan New MD at [facility] N/A: Spine Medtronic Spine/Ortho 01/29/2018 [id number] / / [id number] Screw Lmbr 5.5x25mm Sovereign Stand Alone - [id number] Implanted:Qty: 4 on 12/18/2017 by Yoan New MD at [facility] N/A: Spine Medtronic Spine/Ortho [id number] / / Screw Lmbr 5.5x20mm Sovereign Stand Alone - [id number] Implanted:Qty: 1 on 12/18/2017 by Yoan New MD at [facility] N/A: Spine Medtronic Spine/Ortho [id number]# / / Set Screw Lmbr Ant 5.5mm Solera Break Off - [id number] Implanted:Qty: 6 on 12/18/2017 by Yoan New MD at [facility] N/A: Spine Medtronic Spine/Ortho [id number]# / / Screw Lmbr Post 7.5x55mm Solera 5.5/6 Va Cocr - [id number] Implanted:Qty: 2 on 12/18/2017 by Yoan New MD at [facility] N/A: Spine Medtronic Spine/Ortho [id number]# / / Screw Lmbr Post 7.5x45mm Solera 5.5/6 Va Cocr - [id number] Implanted:Qty: 2 on 12/18/2017 by Yoan New MD at [facility] N/A: Spine Medtronic Spine/Ortho [id number]# / / Procedures Procedure Name Priority Date/Time Associated Diagnosis Comments OCCULT BLOOD IFOBT STOOL Routine 01/07/2018 2:56 PM CDT Screening for colorectal cancer ANTI HCV Routine 06/10/2017 9:30 AM CDT Fatty liver XR DXA BONE DENSITY 2 SITES AXIAL Routine 09/01/2012 9:54 AM CYBER SECURITY CONSULTANT Kyphosis (acquired) (postural) Visit for preventive health examination from Last 3 Months or Most Recently Relevant to Health Maintenance Results * OCCULT BLOOD IFOBT STOOL (01/07/2018 2:56 PM CDT) STOOL BLOOD ,IFOBT Negative Negative 01/09/2018 3:10 PM CDT [facility] Stool STOOL SPECIMEN / Unknown Non-Blood / Unknown 01/07/2018 2:56 PM CDT 01/09/2018 2:56 PM CDT Bernadette Aldana MD LABORATORY [facility] [address] [place] [address], * ANTI HCV (06/10/2017 9:30 AM CDT) HEPATITIS C ANTIBODY Non-Reacti ve Non-Reacti ve 06/10/2017 4:16 PM CDT [facility] TRAL LABORATORY Blood BLOOD SPECIMEN / Unknown Venipuncture / Unknown 06/10/2017 9:30 AM CDT 06/10/2017 9:30 AM CDT Narrative [facility]AT[facility]OR[facility] - 06/10/2017 4:16 PM CDT Antibodies to HCV not detected; does not exclude the possibility of exposure to HCV. Acosta Lang MD SEND OUTS [facility] [address] [place] [address], [place] * XR DEXA BONE DENSITY 2 SITES (09/01/2012 9:54 AM CYBER SECURITY CONSULTANT) Anatomical Region Laterality Modality Spine, HIPS, HIPL, HIPR Computed Radiography Impressions 09/01/2012 4:39 PM CYBER SECURITY CONSULTANT ??This patient's T-score meets the World Health [...] available in the patient? s chart in [facility]. Aditi Aldana M.D. ? Breast/Body Radiologist [employer] [email or web address] / Narrative 09/01/2012 4:39 PM CYBER SECURITY CONSULTANT DIAGNOSTIC DXA BONE MINERAL DENSITY CLINICAL HISTORY: [...] TECHNIQUE: ??The patient was scanned on a [employer]. ??The study was technically adequate but compromised [...] TECHNIQUE: The patient was scanned on a [employer]. The study wastechnically adequate but compromised by [...] available in the patient? s chart in [facility]. Aditi Aldana M.D. Breast/Body Radiologist [employer] [email or web address] / Mari [place] DEXA from Last 3 Months or Most Recently Relevant to Health Maintenance Advance Directives Documents on File Type Date Recorded Patient Art Supervisor Expl anation Healthcare Directive 01/13/2018 12:57 PM [...] 7:10 AM 11/03/2012 11:20 AM Care Teams Hood Maker Relationship Specialty Start Date End Date Viviana Zuniga AuD Audiology 06/01/13
--- OUTSIDE RECORDS SUMMARY | 2024-05-16 08:32 | XMS_ITS | Referral Summary ---
Author Organization [facility] Address [address] [place] [address] Care Team Providers Care Engineering Model Maker Name Role Phone Bernadette Aldana MD Primary [...] of Treatment Not on file Care Teams Engineering Model Maker Relationship Specialty Start Date End Date Bernadette Aldana MD PCP - General Family Practice 03/06/19
--- OUTSIDE RECORDS SUMMARY | 2024-05-16 08:32 | XMS_ITS | Clinical Summary ---
Author Organization [facility] Address [address] [facility] [place] [address] Care Team Providers Care Customer Service Representative Name Role Phone Bernadette Aldana MD Primary [...] of Treatment Not on file Care Teams Customer Service Representative Relationship Specialty Start Date End Date Bernadette Aldana MD PCP - General Family Practice 03/06/19
--- OUTSIDE RECORDS SUMMARY | 2024-05-16 08:32 | XMS_ITS | Encounter Summary ---
Author Organization [facility] Address [address] [facility] [place] [address] Care Team Providers Care Construction Area Manager Name Role Phone Bernadette Aldana MD Primary Care Provider Unavailab le Reason for Visit * Reason Onset Date Comments Referral 03/19/2019 New Eval Encounter Details Date Type Department Care Team (Late st Contact Info) Description 03/19/[address] [facility] [address] [place] [address] Pain Management Program, [facility] Referral (New Eval ) Social History [...] to schedule a new eval. Whitney Rendon Automotive Worker Foreman [facility] * Telephone Encounter - Jenny [place] - 03/19/2019 2:12 PM CDT Referral received from Aditi Fraga NP at [facility] for a comprehensive evaluationand management. Diagnosis - Lumbar radicular pain with previous lumbar fusion Routing for scheduling. Jenny Washington Automotive Worker Foreman [facility] documented in this encounter Plan of Treatment Not on file documented as of this encounter Visit Diagnoses Not on filedocumented in this encounter Care Teams Construction Area Manager Relationship Specialty Start Date End Date Bernadette Aldana MD PCP - General Family Practice 03/06/19 documented as of this encounter
== END 2024-05-16 08:43 | disposition home or self-care (01) ==
PROVIDERS: Emergency Provider Student in an Organized Health Care Education/Training Program; PCP Family Medicine
DX: B02.9 Zoster without complications (principal)
CPT/HCPCS: 99282; 99283

== ENCOUNTER 2024-09-21 10:19 | Outpatient (CLI) | payer MEDICARE, SELFPAY | END 2024-09-21 10:20 | disposition home or self-care (01) | PROVIDERS: PCP Family Medicine; Visit Provider Family Medicine | DX: R10.31 Right lower quadrant pain (principal); R19.7 Diarrhea, unspecified; R30.0 Dysuria | CPT/HCPCS: 80053; 86140; 87086 ==

== ENCOUNTER 2024-09-21 11:00 | Outpatient (CLI) | payer MEDICARE, SELFPAY ==
--- NOTE | 2024-09-21 11:00 | CRLHL7_ITS ---
For Patients: As a result of the Century Cures Act, medical imaging exams and procedure reports are released immediately into your electronic medical record. You may view this report before your referring provider. If you have questions, please contact your health care provider. INDICATION: Right lower quadrant pain. COMPARISON: 04/29/2021 TECHNIQUE: CT of the abdomen and pelvis with intravenous contrast. Multiplanar axial, coronal, and sagittal reformats were reconstructed. Contrast: 108 mL Isovue 370. FINDINGS: Lung bases: Minimal basilar peripheral reticulation is similar to prior. Liver: Normal. No mass. Gallbladder and bile ducts: The gallbladder is distended but there is not any wall thickening or pericholecystic fluid seen. No bile duct dilation. Pancreas: Normal. Spleen: Small splenule. Normal spleen size. Adrenal glands: Normal. Kidneys: Normal parenchyma. There are few tiny renal cysts. No solid renal mass. No calculi. No urinary tract dilation. Urinary bladder: Barely filled. Pelvis: Streak artifact from the hip arthroplasty. Presumed hysterectomy. No cyst or mass seen. Vessels: Atherosclerotic vascular calcifications. No aortic aneurysm. Mesenteric vessels are patent. Bowel: No dilated or inflamed bowel. The appendix is not seen. Highly redundant sigmoid colon with a few scattered diverticuli. Moderate right-sided stool burden. Lymph nodes: No adenopathy. Peritoneum: No ascites. Abdominal wall: No hernia. Bones: Lower lumbar laminectomy. L4-S1 posterior instrumented fusion with solid bony fusion across the disc spaces and posterior elements. No hardware failure or migration seen. Right hip arthroplasty. No acute or healing fractures. No focal worrisome bone lesions. IMPRESSION: No acute or worrisome findings. No CT explanation for the patient`s abdominal pain is seen. Please note that all CT scans at this facility use dose modulation, iterative reconstruction, and/or weight-based dosing when appropriate to reduce radiation dose to as low as reasonably achievable. Dictated by Lurdes Leonard MD @ 09/21/2024 12:21:00 PM (Electronically Signed)
== END 2024-09-21 11:01 | disposition home or self-care (01) ==
LOC: CT 11:02
PROVIDERS: PCP Family Medicine; Visit Provider Family Medicine
DX: R10.31 Right lower quadrant pain (principal)
CPT/HCPCS: 74177; Q9967

== ENCOUNTER 2024-09-21 12:13 | Emergency (ER) | payer MEDICARE, SELFPAY ==
--- OUTSIDE RECORDS SUMMARY | 2024-09-21 12:16 | XMS_ITS | Continuity of Care Document ---
Author Organization [facility] Address [address] [place] [address] Phone Care Team Providers Care Special Equipment Technician Name Role Phone Unavailable Unavailable Unavailable Allergies, Adverse Reactions, Alerts Substance Reaction Status Criticality No Known allergies Procedures Procedure Date Office/Outpatient Visit,[facility] 2011 X-Ray Exam Lower Spine 2-3 Views 2011 Advance Directives Directive Yes / No Effective Date File Name No Information Encounters Encounter Description Practice Location Reason(s) For Visit Diagnoses Date Provider Providers Copied on Encounter [facility], [address] [place] [address], [address], [place] tel:[phone] [facility] No Information 3 No Information Office/Outpa tient Visit,[facility], [facility], [address] [place] [address], [facility], [place] tel:[phone] [facility] No Information 2 Mehbod Amir. [facility], [address] [place] [address], [id number], [place]. tel:[phone] [facility], [address] [place] [address], [address], [place] tel:[phone] [facility] 2 Jenny [place]. [address] [place] [address], [id number], [place]. tel:[phone] Family History Family Member Type Diagnosis Age At Onset Problem (finding) Problem (finding) Problem (finding) Problem (finding) Payers Payer name Insurance type Covered green party ID Authoriza titomas(s) [employer] Insurance [id number] Social History Type Description Quantity Date Captured Comments Sex Female Smoking Status No Information Chief Complaint And Reason For Visit No Information Reason For Referral Reason For Referral No Information History Of Present Illness Encounter Date Complaint History Of Prese nt Illness No Information Functional Status Date Functional Assessmen t No Information Instructions Date Instruction Additional Infor mation No Information Assessments Type Assessment Date No Information Patient Care Teams Name Effective Dates (start - stop) Status Members No Information
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
--- OUTSIDE RECORDS SUMMARY | 2024-09-21 12:16 | XMS_ITS | Data Portability ---
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[employer] [facility] Address [address] [place] [address] Assessment Encounter Date Assessment Date Assessment LastModified [...] Recorded Time Somatic dysfunction of pelvic region 065995670 Active 2024 Steven Betts DC [address], [place], [address], [facility] 13:20:20 Somatic dysfunction of sacral spine 714166040 Active 2024 Steven Betts DC [address], [place], [address], [facility] 13:20:31 Somatic dysfunction of lower limb 882610732 Active 2024 Steven Betts DC [address] [place] [address], [place], [address], [facility] 13:20:38 Spasm of muscle of lower back 7611664218169 9105 Active 2024 Steven Betts DC [address], [place], [address], [facility] 13:20:45 Problem Notes None recorded. Procedures Surgical History Date Name Laterality Status Provider Name and Address Organization Details Recorded Time 72859: Spinal manipulation , 3 to 4 regions completed Steven Betts DC [address], [place], [address], [facility] 08/20/2024 13:20:04 Imaging Results None recorded. [...] SNOMED-CT Code Diagnosis ICD10 Code Diagnosis Note [id number] ANGELITO Flor [facility] [address] [place] [address] 08/20/2024 10:08:31 08/20/2024 15:04:58 Somatic dysfunction of pelvic region 969733051 M99.05 Somatic dy sfunction of sacral spine 211117397 M99.04 Somatic dy sfunction of lower limb 060885733 M99.06 Spasm of m uscle of lower back 7493722783 0508835 M62.830 Health Concerns Section Related Observation LastModified by Organization Detai ls LastModified Time None Recorded Concern Status LastModified by Organization Details LastModified Time None Recorded Advance Directives Directive None Recorded Payers Encounter Date Sequence Insurance Name Policy Number Policy Montoya Covered Member ID Montoya Member ID Guarantor Name 08/20/2024 [employer] [id number] Natalie D aSilva Notes Date Note Type Note Provider Name [...] daily activities reported. Steven Betts DC [address], [place], [address], [facility] 08/20/2024 16:04:04 OBGyn Episode No OBEpisode recorded.
--- OUTSIDE RECORDS SUMMARY | 2024-09-21 12:16 | XMS_ITS | Clinical Summary ---
Author Organization [facility] Address [address] , [address] [place] [address] Phone Care Team Providers Care Dairy Nutrition Consultant Name Role Phone [facility] Unavailable Unava ilable Conditions or Problems Problem Name Problem Code Onset Date Status Entry Date Provider Comment Standard Description Annotate Neck pain 31178953 (SNOMED CT) 12/28 Active 12/28 Sebastian Strong MD Neck pain Developmental dyslexia as a rule out 234991869 (SNOMED CT) 12/11 Active 12/27 Heather Ward PhD Developmental dyslexia Attention or concentration deficit 88969053 (SNOMED CT) 12/11 Active 12/27 Heather Ward PhD Undifferentiated attention deficit disorder Memory problems R41.3 (ICD-10-CM ) 09/10 Active 09/10 Sebastian Strong MD Other amnesia 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 (ICD-10-CM ) 03/18 Active 03/18 Sebastian Strong MD Sacrococcygeal disorders, not elsewhere classified LEG PAIN 98449533 (SNOMED CT) 12/26 Active 12/26 Sebastian Strong MD Pain in lower limb ESSENTIAL TREMOR 434324585 (SNOMED CT) 12/26 Active 12/26 Sebastian Strong MD Essential tremor Medications Medication Instructions Start Date Stop Date Generic Name [facility] Provider GABAPENTIN 300 MG CAPS 1 pill bid for Week #1, then 1 po tid beginning in Week #2 and thereafter GABAPENTIN 32884667826 Sebastian Strong MD CYCLOBENZAPRINE HCL 10 MG TABS 1 po bid CYCLOBENZAPRINE HCL 57167426788 Sebastian Strong MD MYSOLINE 50 MG TABS 1 po bid PRIMIDONE 85467065685 Sebastian Strong MD MYSOLINE 50 MG TABS Week #1 take 1/2 po qhs, then Week #2 take 1/2 po bid, then Week #3 take 1/2 po in AM and 1 po in PM, then Week #4 and tereafter take 1 po bid 09/08 PRIMIDONE [id number] Sebastian Strong MD Medications Administered No information available. Allergies, Adverse Reactions, Alerts Observed no known allergies at Results Date Name Value Unit Range Flag Description Internal Other: Authorizatio n - OBS AUTHORIZEDBY DONE richard arboleda authorization Internal Correspondence: Rec ord Request/Film Request/Chart Summary MELISSA XR SD DT 01/10/2011 HIPAA release of information, xray and imaging, sent date FILMSTATUS CD/Films Mailed fi lm status, radiology Office Visit: [facility] SMOK STATUS Previous Smoker/Previous User Tobacco smoking status Internal Other: Observation data from Authorization.pdf HIECONSENT Y Consent To Release information to the Health Information Exchange ([place]) Plan of Care Type Date Detail Pending order MRI-Cervical W/O Pending order Neuropsychology Evaluation Pending order TSH Pending order Vitamin B1 (Thia mine) Pending order Vitamin B12 Pending order CT-Brain W/O Procedures Code Procedure Name Date Entry Date [id number] MRI-Cervical W/O ORDERS Neuropsychology Evaluation 2 CPT-74118 Npsy Interview w/Provider - 1st hour 2021 CPT-91613 Npsy Interp/Rpt by Provider - 1st hour 30/12/02 CPT-44879 Npsy Interp/Rpt by Provider - 2 hours 09/15/02 CPT-63557 Npsy Test by Tech (2+ Tests) - 1st 30 min CPT-73113 Npsy Test by Tech (2+ Tests) - 1.5 hours ORDERS TSH ORDERS Vitamin B1 (Thiamine) 09/10 ORDERS Vitamin B12 [id number] CT-Brain W/O CPT-38920 MRI Lumbar W/O CPT-19856 MRI Pelvis (Without Contrast) CPT-37998 MRI Lumbar (Without Contrast) Vital Signs Date Name Value Unit Description Height 67 [in_us] height E&M BMI (Body Mass Index) 31.91 kg/m2 Bod y Mass Index (Ratio) BP Diastolic 82 mm[Hg] blood pressu re, diastolic BP Systolic 116 mm[Hg] blood pressur e, systolic Heart Rate 68 /min pulse rate Weight Measured 203 [lb_av] weight E& M Immunizations No information available. Advance Directives No information available.
[2024-09-21 12:20] VITALS: BP 152/75; PULSE 68; RESP 18; TEMP 36.5; O2SAT 97; BMI 35.5
--- NOTE | 2024-09-21 12:43 | ED_ITS ---
HPI - General Adult General Chief complaint: Unspecified Complaint, Adult Stated complaint: Shaking post CT Time Seen by Provider: 09/21/24 12:16 History of Present Illness HPI narrative: [age] year white female who felt shaky after her contrast enhanced CT scanner abdomen is ordered by the clinic today Dr. Wilson. Patient's CT scan looked unremarkable. She has complained of some intermittent right lower abdominal pain. There was no findings on her CT as mentioned per Radiology. She had reassuring lab studies including a negative white count. She has been shaking in her arms and legs since she got her CT. She has been awake alert, no throat tightening no tongue swelling. She has had no skin rashes. She has never had allergic reaction before, she has no allergies to drugs. No shortness of breath. No cough, Related Data Previous Rx's ?Medication ?Instructions ?Recorded gabapentin 300 mg capsule 300 - 600 mg (1 - 2 x 300 mg) PO 09/21/24 TID #90 caps Allergies Allergy/AdvReac Type Severity Reaction Status Date / Time No Known Drug Allergies Allergy Verified 09/21/24 09:47 Review of Systems Status of ROS: Reports: 6 or more systems reviewed and unremarkable except as noted in History and below PFSH PFS Surgical History Status post right knee replacement ?Z96.651 - Presence of right artificial knee joint (ICD-10) Status post lumbar spinal fusion ?Z98.1 - Arthrodesis status (ICD-10) Family History Family/Other Colon cancer Social History Narrative: Has a male roommate, nonsmoker, 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 What is your current living situation?: declined to answer Problems where you live: declined to answer In the past 12 months, utilities in danger of being shut off: declined to answer In past 12 months, lack of transportation kept you from medical appts, meetings, work, or getting things needed for daily living: declined to answer In the past 12 mos, have been you worried that your food would run out before you had money to buy more?: declined to answer In the past 12 mos, the food you bought just didn't last and you didn't have money to buy more?: declined to answer Smoking Status: Never smoker Do you use any of these nicotine containing products: None Second hand tobacco smoke exposure: No How often do you have a drink containing alcohol: never How often do you have six or more drinks on one occasion: Never AUDIT-C Alcohol total score: 0 Non-prescribed substance use: denies use How often does anyone, including family, friends and others, physically hurt you : decline to answer How often does anyone, including family, friends and others, insult or talk down to you: decline to answer How often does anyone, including family, friends and others, threaten you with harm: decline to answer How often does anyone, including family, friends and others, scream or curse at you: decline to answer service: No Health Related Social Needs: unsheltered homelessness (Z59.02) Exam Narrative: Exam Narrative: Objective vital signs are within normal limits other than slightly elevated systolic pressure patient is alert or x3 talks in even and nonlabored sentences she has no mouth swelling or tongue swelling Neck is supple Pulse regular Chest is clear no rales or wheezing Heart rhythm regular heart murmur Extremities are no edema neurologic nonfocal Neurologic she has normal strength she has normal finger to nose she does have arm and leg shaking but it appears to be more of a voluntary issue that when I disc distractor she stops doing that. Const: Vital Signs, click to edit/add: Vital Signs - 24 hr 09/21/24 12:20 Temperature 97.7 F Pulse Rate [Pulse Oximeter] 68 Respiratory Rate 18 Blood Pressure [Ri ght Upper Arm] 152/75 H Pulse Oximetry 97 Oxygen Delivery Me thod Room Air Course Vital Signs Vital signs: Initial Vital Signs Temperature 97.7 F 09/21/24 12:20 Temperature Source Temporal Artery Scan 09/21/24 12:20 Pulse Rate 68 09/21/24 12:20 Respiratory Rate 18 09/21/24 12:20 Blood Pressure 152/75 H 09/21/24 12:20 Blood Pressure Mean 100 09/21/24 12:20 Pulse Oximetry 97 09/21/24 12:20 Oxygen Delivery Method Room Air 09/21/24 12:20 Vital Signs Temperature 97.7 F 09/21/24 12:20 Pulse Rate 68 09/21/24 12:20 Respiratory Rate 18 09/21/24 12:20 Blood Pressure 152/75 H 09/21/24 12:20 Pulse Oximetry 97 09/21/24 12:20 Oxygen Delivery Method Room Air 09/21/24 12:20 Temperature 97.7 F 09/21/24 12:20 Pulse Rate 68 09/21/24 12:20 Respiratory Rate 18 09/21/24 12:20 Blood Pressure 152/75 H 09/21/24 12:20 Pulse Oximetry 97 09/21/24 12:20 Oxygen Delivery Method Room Air 09/21/24 12:20 Medications Administered Medications: Discontinued Medications Generic Name Dose Route Start Last Admin Trade Name Sushant PRN Reason Stop Dose Admin Lorazepam 0.5 mg 09/21/24 12:42 09/21/24 12:46 Lorazepam 0.5 Mg Tablet PO 09/21/24 12:43 0.5 mg ONCE ONE Administration Medical Decision Making MDM Narrative Medical decision making narrative: [age] year white female who had some right-sided abdominal pain today with a negative CT scan normal blood work. At this point she has a benign abdomen. She has some shakiness after IV contrast. It distal does not appear to be allergy, I think this is more a stress reaction or anxiety. When I discussed with her what is coming up she has a cruise in the next couple of weeks, I asked her if she needs a note to not go on the cruise as she fears ?quarantine and ?and she said that would not be a bad idea. I think possibly the patient just really has stress regarding her upcoming trip. Would recommend observation will give her an Ativan 0.5 mg now have her get a ride home. And have her recheck as needed with primary care. She can always return to ED if it does not resolve or other concerns will observe her. At time make sure it gets better. Discharge Plan Discharge Clinical Impression: Shakiness, Anxiety Patient Disposition: Home w/ Parent or Adult Condition: Stable Additional Instructions: Rest, light activity, fluids, observation, Benadryl as needed. Recommend update regular doctor in the next 2-3 days, return to ED sooner problems concerns worsening or changes. Activity Level: Light activity Discharge Diet: Regular Prescriptions: No Action gabapentin 300 mg capsule 300 - 600 mg PO TID Qty: 90 2RF Follow Up/Referrals: Chris Garcia MD [Primary Care Provider] - Stand Alone Forms: [employer] Info Instructions
[2024-09-21] MEDS: LORazepam 0.5 MG TABLET PO (12:46)
--- OUTSIDE RECORDS SUMMARY | 2024-09-21 12:47 | XMS_ITS | Continuity of Care Document ---
Author Organization [facility] Address [address] [place] [address] Phone Care Team Providers Care Joint Cutter Name Role Phone Unavailable Unavailable Unavailable Allergies, Adverse Reactions, Alerts Substance Reaction Status Criticality No Known allergies Procedures Procedure Date Office/Outpatient Visit,[facility] 2011 X-Ray Exam Lower Spine 2-3 Views 2011 Advance Directives Directive Yes / No Effective Date File Name No Information Encounters Encounter Description Practice Location Reason(s) For Visit Diagnoses Date Provider Providers Copied on Encounter [facility] [place], [address] [place] [address], [id number], [place] tel:[phone] [facility] No Information 3 No Information Office/Outpa tient Visit,[facility], [facility], [address] [place] [address], [facility], [place] tel:[phone] [facility] No Information 2 Mehbod Amir. [facility], [address] [place] [address], [id number], [place]. tel:[phone] [facility], [address] [place] [address], [address], [place] tel:[phone] [facility] 2 Jenny Piper. [address] [place] [address], [id number], [place]. tel:[phone] Family History Family Member Type Diagnosis Age At Onset Problem (finding) Problem (finding) Problem (finding) Problem (finding) Payers Payer name Insurance type Covered green party ID Authoriza titomas(s) [employer] Insurance [id number] Social History Type Description Quantity Date Captured [...]
--- OUTSIDE RECORDS SUMMARY | 2024-09-21 12:47 | XMS_ITS | Clinical Summary ---
Author Organization [facility] Address [place], [place] [address] Care Team Providers Care Paint Specialist Name Role Phone Viviana Mccauley Unavailable [phone] Allergies No known active allergies Medications [...] Care Agent: Dtr Relationship: Stephani Sellers Phone: [phone] ext [phone] Secondary Health Care Agent: Dtr Relationship: Thompson Saucedo Phone: [phone] Conservator: Relationship: Phone: Guardian: Relationship: Phone: Patient has Advance Care Plan Documents (Health Care Directive, POLST): Yes Advance Care Plan Documents: Health Care Directive Patient has identified Specific Treatment Preferences: Yes How have preferences been verified: HCD Specific Treatment Preferences: Please refer to HCD - Pt does not want CPR attempted if heart or breathing stops. Amira Saucedo, [facility], 12/19/2017 2:10 PM [id number] Lumbar stenosis 12/18/2017 Overview (09/20/2019): S/p lumbar fusion Dyslipidemia (high LDL; low HDL) 06/11/2017 Overview (06/11/2017): AHA risk 8.2%, [place] risk 9.9%, recommend visit to discuss pros/cons [...] (04/18/2011): Tx Mysoline Followed by Dr Strong, [facility] Advance care planning 03/27/2011 PVD (posterior [...] on file Legal Sex Female 6:35 AM BRUSH MAKER Gender Identity Not on file Sexual Orientation Not on file Obstetrics History Last Filed Vital Signs Vital Sign Reading Time Taken Comments Blood Pressure 112/57 10/14/2022 7:59 AM BRUSH MAKER Pulse 55 10/14/2022 7:59 AM BRUSH MAKER Temperature 36.3 C (97.4 F) 08/27/2022 7:36 AM BRUSH MAKER Respiratory Rate 18 12/21/2017 7:23 AM CDT Oxygen Saturation 97% 08/27/2022 7:36 AM BRUSH MAKER Inhaled Oxygen Concentration - - Weight 103.7 kg (228 lb 11.2 oz) 08/27/2022 7:36 AM BRUSH MAKER Height 172.7 cm (5' 8) 11/28/2021 3:18 [...] Completed 06/10/2017 Medical Devices Implanted Type Area Tightener Device Identifier Shelf Expiration Date Model / Serial / Lot Bone Matrix Xsm Infuse Bmp - [id number] Implanted:Qty: 1 on 12/18/2017 by Yoan New MD at [facility] N/A: Spine Medtronic Spine/Ortho 02/07/2019 [id number] / / [id number] Screw Lmbr Post 5.5x55mm Solera 5.5/6 Va Cocr - [id number] Implanted:Qty: 2 on 12/18/2017 by Yoan New MD at [facility] N/A: Spine Medtronic Spine/Ortho [id number] 5# / / Scot Lmbr 60x5.5mm Solera 5.5/6cvd Co Cr - [id number] Implanted:Qty: 2 on 12/18/2017 by Yoan New MD at [facility] N/A: Spine Medtronic Spine/Ortho [id number] # / / Bone Matrix 10cc Progenix Putty Dbm - [id number] Implanted:Qty: 1 on 12/18/2017 by Yoan New MD at [facility] N/A: Spine Medtronic Spine/Ortho 03/21/2019 [id number]# / / [id number] Spacer Lmbr [id number] 8deg Mdsovereign Stand Alone - [id number] Implanted:Qty: 1 on 12/18/2017 by Yoan New MD at [facility] N/A: Spine Medtronic Spine/Ortho 08/19/2024 [id number]# / / 59DG Spacer Lmbr [id number] 8deg Mdsovereign Stand Alone - [id number] Implanted:Qty: 1 on 12/18/2017 by Yoan New MD at [facility] N/A: Spine Medtronic Spine/Ortho 01/29/2018 [id number]# / / [id number] Screw Lmbr 5.5x25mm Sovereign Stand Alone - [id number] Implanted:Qty: 4 on 12/18/2017 by Yoan New MD at [facility] N/A: Spine Medtronic Spine/Ortho [id number]# / / Screw Lmbr 5.5x20mm Sovereign Stand Alone - [id number] Implanted:Qty: 1 on 12/18/2017 by Yoan New MD at [facility] N/A: Spine Medtronic Spine/Ortho [id number]# / / Set Screw Lmbr Ant 5.5mm Solera Break Off - [id number] Implanted:Qty: 6 on 12/18/2017 by Yoan New MD at [facility] N/A: Spine Medtronic Spine/Ortho [id number]# / / Screw Lmbr Post 7.5x55mm Solera 5.5/6 Va Cocr - [id number] Implanted:Qty: 2 on 12/18/2017 by Yoan New MD at [facility] N/A: Spine Medtronic Spine/Ortho [id number] 5# / / Screw Lmbr Post 7.5x45mm Solera 5.5/6 Va Cocr - [id number] Implanted:Qty: 2 on 12/18/2017 by Yoan New MD at [facility] N/A: Spine Medtronic Spine/Ortho [id number] 5# / / Procedures Procedure Name Priority Date/Time Associated Diagnosis Comments ANTI HCV Routine 06/10/2017 9:30 AM CDT Fatty liver XR DXA BONE DENSITY 2 SITES AXIAL Routine 09/01/2012 9:54 AM BRUSH MAKER Kyphosis (acquired) (postural) Visit for preventive health examination from Last 3 Months or Most Recently Relevant to Health Maintenance Results * ANTI HCV (06/10/2017 9:30 AM CDT) HEPATITIS C ANTIBODY Non-Reacti ve Non-Reacti ve 06/10/2017 4:16 PM CDT [facility] [employer] [facility] TR[facility] LABORAT[facility] Blood BLOOD SPECIMEN / Unknown Venipuncture / Unknown 06/10/2017 9:30 AM CDT 06/10/2017 9:30 AM CDT Narrative [facility] - 06/10/2017 4:16 PM CDT Antibodies to HCV not detected; does not exclude the possibility of exposure to HCV. us Acosta Lang MD SEND OUTS Final Result [facility] [address] [place] [address], [place] * XR DEXA BONE DENSITY 2 SITES (09/01/2012 9:54 AM BRUSH MAKER) Anatomical Region Laterality Modality Spine, HIPS, HIPL, HIPR Computed Radiography Impressions 09/01/2012 4:39 PM BRUSH MAKER This patient's T-score meets the World Health [...] available [facility] the [facility] Aditi Aldana M.D. Breast/Body Radiologist [place] [email or web address] / Narrative 09/01/2012 4:39 PM BRUSH MAKER DIAGNOSTIC DXA BONE MINERAL DENSITY CLINICAL HISTORY: [...] TECHNIQUE: The patient was scanned on a [employer]. The study was technically adequate but compromised [...] TECHNIQUE: The patient was scanned on a [employer]. The study wastechnically adequate but compromised by [...] in [facility]. Aditi Aldana M.D. Breast/Body Radiologist [employer] [email or web address] / Mari [place] DEXA Final Result from Last 3 Months or Most Recently Relevant to Health Maintenance Insurance MEDICARE PART A HB ONLY MEDICARE PART B HB ONLY BLUE [place] [employer] IRA BLUE HB ONLY HUMANA CHOICE PPO MR MVA [employer]HIC[employer] INS Member Subscriber Plan / Payer (Ef fective 2021-Present) Name:Natalie Da Silva Relation to Subscriber:Self Name:Rekha, Natalie Garcia Payer ID:Not on file Group ID:Not on file Type:Not on file Address: [facility] [id number] [place] [id number] Advance Directives Documents on File Type Date Recorded Patient Cap Sizer Expl anation Healthcare Directive 01/13/2018 12:57 PM [...] 7:10 AM 11/03/2012 11:20 AM Care Teams Paint Specialist Relationship Specialty Start Date End Date Viviana Mccauley [facility] 06/01/13
--- OUTSIDE RECORDS SUMMARY | 2024-09-21 12:47 | XMS_ITS | Clinical Summary ---
Author Organization [facility] Address [address] , [address] [place] [address] Phone Care Team Providers Care Technical Sales Advisor Name Role Phone [facility] Unavailable Unava ilable Conditions or Problems Problem Name Problem Code Onset Date Status Entry Date Provider Comment Standard Description Annotate Neck pain 98516803 (SNOMED CT) 12/28 Active 12/28 Sebastian Strong MD Neck pain Developmental dyslexia as a rule out 345779770 (SNOMED CT) 12/11 Active 12/27 Heather Ward PhD Developmental dyslexia Attention or concentration deficit 14853893 (SNOMED CT) 12/11 Active 12/27 Heather Ward PhD Undifferentiated attention deficit disorder Memory problems R41.3 (ICD-10-CM ) 09/10 Active 09/10 Sebastian Strong MD Other amnesia 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 (ICD-10-CM ) 03/18 Active 03/18 Sebastian Strong MD Sacrococcygeal disorders, not elsewhere classified LEG PAIN 79574999 (SNOMED CT) 12/26 Active 12/26 Sebastian Strong MD Pain in lower limb ESSENTIAL TREMOR 809434175 (SNOMED CT) 12/26 Active 12/26 Sebastian Strong MD Essential tremor Medications Medication Instructions Start Date Stop Date Generic Name [facility] Provider GABAPENTIN 300 MG CAPS 1 pill bid for Week #1, then 1 po tid beginning in Week #2 and thereafter GABAPENTIN [id number] Sebastian Strong MD CYCLOBENZAPRINE HCL 10 MG TABS 1 po bid CYCLOBENZAPRINE HCL [id number] Sebastian Strong MD MYSOLINE 50 MG TABS 1 po bid PRIMIDONE [id number] Sebastian Strong MD MYSOLINE 50 MG TABS Week #1 take 1/2 po qhs, then Week #2 take 1/2 po bid, then Week #3 take 1/2 po in AM and 1 po in PM, then Week #4 and tereafter take 1 po bid 09/08 PRIMIDONE [id number] Sebastian Strong MD Medications Administered No information [...] Mailed fi lm status, radiology Office Visit: [facility] SMOK STATUS Previous Smoker/Previous User Tobacco smoking status Internal Other: Observation data from Authorization.pdf HIECONSENT Y Consent To Release information to the Health Information Exchange (eTimesheets.com) Plan of Care Type Date Detail Pending order MRI-Cervical W/O Pending order Neuropsychology Evaluation Pending order TSH Pending order Vitamin B1 (Thia mine) Pending order Vitamin B12 Pending order CT-Brain W/O Procedures Code Procedure Name Date Entry Date [id number] MRI-Cervical W/O ORDERS Neuropsychology Evaluation 2 CPT-20844 Npsy Interview w/Provider - 1st hour 2021 CPT-95227 Npsy Interp/Rpt by Provider - 1st hour 30/12/02 CPT-96594 Npsy Interp/Rpt by Provider - 2 hours 09/15/02 CPT-56921 Npsy Test by Tech (2+ Tests) - 1st 30 min CPT-76775 Npsy Test by Tech (2+ Tests) - 1.5 hours ORDERS TSH ORDERS Vitamin B1 (Thiamine) 09/10 ORDERS Vitamin B12 [id number] CT-Brain W/O CPT-05225 MRI Lumbar W/O CPT-32799 MRI Pelvis (Without Contrast) CPT-78840 MRI Lumbar (Without Contrast) Vital Signs Date [...]
== END 2024-09-21 13:10 | disposition home or self-care (01) ==
PROVIDERS: Emergency Provider Family Medicine; PCP Family Medicine
DX: R25.9 Unspecified abnormal involuntary movements (principal); F41.9 Anxiety disorder, unspecified
CPT/HCPCS: 99283; 99284; A9270

== ENCOUNTER 2024-11-02 14:14 | Emergency (ER) | payer MEDICARE, SELFPAY ==
[2024-11-02] VITALS (17 sets, daily range): BP systolic 125–151; BP diastolic 82–91; PULSE 110–134; RESP 10–48; TEMP 37.6; O2SAT 94–100; BMI 40.7
--- OUTSIDE RECORDS SUMMARY | 2024-11-02 14:17 | XMS_ITS | Data Portability ---
Author Organization [place] [facility] [employer] [facility] Address [address] [place] [address] Assessment Encounter Date Assessment Date Assessment LastModified [...] Recorded Time Somatic dysfunction of pelvic region 711996858 Active 2024 Steven Betts DC [address], [place], [address], [facility] 13:20:20 Somatic dysfunction of sacral spine 939451670 Active 2024 Steven Betts DC [address], [place], [address], [facility] 13:20:31 Somatic dysfunction of lower limb 525989008 Active 2024 Steven Betts DC [address] [place] [address], [place], [address], [facility] 13:20:38 Spasm of muscle of lower back 6293898601016 9105 Active 2024 Steven Betts DC [address], [place], [address], [facility] 13:20:45 Problem Notes None recorded. Procedures Surgical History Date Name Laterality Status Provider Name and Address Organization Details Recorded Time 31880: Spinal manipulation , 3 to 4 regions completed Steven Betts DC [address], [place], [address], [facility] 08/20/2024 13:20:04 Imaging Results None recorded. Procedure [...] SNOMED-CT Code Diagnosis ICD10 Code Diagnosis Note [id number] ANGELITO Flor [facility] [address] [place] [address] 08/20/2024 10:08:31 08/20/2024 15:04:58 Somatic dysfunction of pelvic region 462046976 M99.05 Somatic dy sfunction of sacral spine 550572311 M99.04 Somatic dy sfunction of lower limb 692746970 M99.06 Spasm of m uscle of lower back 0298133550 6048749 M62.830 Health Concerns Section Related Observation LastModified by Organization Detai ls LastModified Time None Recorded Concern Status LastModified by Organization Details LastModified Time None Recorded Advance Directives Directive None Recorded Payers Encounter Date Sequence Insurance Name Policy Number Policy Montoya Covered Member ID Montoya Member ID Guarantor Name 08/20/2024 [employer]ATIONAL [employer]MN[employer] [id number] Natalie Da Silva Notes Date Note Type [...] reported. Steven Betts DC [address], [place], [address], [facility] - [facility] 08/20/2024 16:04:04 OBGyn Episode No OBEpisode recorded.
--- OUTSIDE RECORDS SUMMARY | 2024-11-02 14:17 | XMS_ITS | Continuity of Care Document ---
Author Organization [facility] Address [address] [place] [address] Phone Care Team Providers Care Artist Manager Name Role Phone Unavailable Unavailable Unavailable Allergies, Adverse Reactions, Alerts Substance Reaction Status Criticality No Known allergies Procedures Procedure Date Office/Outpatient Visit,[facility] 2011 X-Ray Exam Lower Spine 2-3 Views 2011 Advance Directives Directive Yes / No Effective Date File Name No Information Encounters Encounter Description Practice Location Reason(s) For Visit Diagnoses Date Provider Providers Copied on Encounter [facility] [place], [address] [place] [address], [address], [place] tel:[phone] [facility] No Information 3 No Information Office/Outpa tient Visit,[facility], [facility], [address] [place] [address], [facility], [place] tel:[phone] [facility] No Information 2 Mehbod Amir. [facility], [address] [place] [address], [id number], [place]. tel:[phone] [facility], [address] [place] [address], [address], [place] tel:[phone] [facility] 2 Jenny Piper. [address] [place] [address], [id number], [place]. tel:[phone] Family History Family Member Type Diagnosis Age At Onset Problem (finding) Problem (finding) Problem (finding) Problem (finding) Payers Payer name Insurance type Covered libertarian ID Authoriza titomas(s) [employer] Insurance [id number] Social History Type Description Quantity Date Captured [...]
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
--- OUTSIDE RECORDS SUMMARY | 2024-11-02 14:17 | XMS_ITS | Clinical Summary ---
Author Organization [facility] Address [address] [place] [address] Phone Care Team Providers Care Nuisance Wildlife Trapper Name Role Phone [facility] Unavailable Unava ilable Conditions or Problems Problem Name Problem Code Onset Date Status Entry Date Provider Comment Standard Description Annotate Neck pain 25927234 (SNOMED CT) 12/28 Active 12/28 Sebastian Strong MD Neck pain Developmental dyslexia as a rule out 057309552 (SNOMED CT) 12/11 Active 12/27 Heather Ward PhD Developmental dyslexia Attention or concentration deficit 21022958 (SNOMED CT) 12/11 Active 12/27 Heather Ward PhD Undifferentiated attention deficit disorder Memory problems R41.3 (ICD-10-CM ) 09/10 Active 09/10 Sebastian Strong MD Other amnesia 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 (ICD-10-CM ) 03/18 Active 03/18 Sebastian Strong MD Sacrococcygeal disorders, not elsewhere classified LEG PAIN 19631337 (SNOMED CT) 12/26 Active 12/26 Sebastian Strong MD Pain in lower limb ESSENTIAL TREMOR 892486105 (SNOMED CT) 12/26 Active 12/26 Sebastian Strong MD Essential tremor Medications Medication Instructions Start Date Stop Date Generic Name [facility] Provider GABAPENTIN 300 MG CAPS 1 pill bid for Week #1, then 1 po tid beginning in Week #2 and thereafter GABAPENTIN [id number] Sebastian Strong MD CYCLOBENZAPRINE HCL 10 MG TABS 1 po bid CYCLOBENZAPRINE HCL [id number] Sebastian Strong MD MYSOLINE 50 MG TABS 1 po bid PRIMIDONE [id number] Sebastian Strong MD MYSOLINE 50 MG TABS Week #1 take 1/2 po qhs, then Week #2 take 1/2 po bid, then Week #3 take 1/2 po in AM and 1 po in PM, then Week #4 and tereafter take 1 po bid 09/08 PRIMIDONE [id number] Sebastian Strong MD Medications Administered No information [...] Mailed fi lm status, radiology Office Visit: [facility] SMOK STATUS Previous Smoker/Previous User Tobacco smoking status Internal Other: Observation data from Authorization.pdf HIECONSENT Y Consent To Release information to the Health Information Exchange (M[employer]) Plan of Care Type Date Detail Pending order MRI-Cervical W/O Pending order Neuropsychology Evaluation Pending order TSH Pending order Vitamin B1 (Thia mine) Pending order Vitamin B12 Pending order CT-Brain W/O Procedures Code Procedure Name Date Entry Date [id number] MRI-Cervical W/O ORDERS Neuropsychology Evaluation 2 CPT-62514 Npsy Interview w/Provider - 1st hour 2021 CPT-38336 Npsy Interp/Rpt by Provider - 1st hour 30/12/02 CPT-48281 Npsy Interp/Rpt by Provider - 2 hours 09/15/02 CPT-27369 Npsy Test by Tech (2+ Tests) - 1st 30 min CPT-94653 Npsy Test by Tech (2+ Tests) - 1.5 hours ORDERS TSH ORDERS Vitamin B1 (Thiamine) 09/10 ORDERS Vitamin B12 [id number] CT-Brain W/O CPT-40576 MRI Lumbar W/O CPT-84926 MRI Pelvis (Without Contrast) CPT-71967 MRI Lumbar (Without Contrast) Vital Signs Date Name Value Unit Description Height 67 [in_us] height E&M BMI (Body Mass Index) 31.91 kg/m2 Bod y Mass Index (Ratio) BP Diastolic 82 mm[Hg] blood pressu re, diastolic BP Systolic 116 mm[Hg] blood pressur e, systolic Heart Rate 68 /min pulse rate Weight Measured 203 [lb_av] weight E& M Weight Measured 203 [lb_av] weight E& M Immunizations No information available. Advance Directives No information available.
--- NOTE | 2024-11-02 15:05 | ED.GENADULT ---
HPI - General Adult General Chief complaint: Arrhythmia/Palpitations Stated complaint: TACHYCARDIA/DIZZINESS Time Seen by Provider: 11/02/24 14:45 History of Present Illness HPI narrative: This 78-year-old female comes in reporting headache, tachycardia, and lightheadedness. She states that these symptoms came on rather suddenly at about 4:00 p.m. yesterday, about 24 hours prior to arrival here. She states that she has been drinking plenty of fluids but feels thirsty yet. She does report some vague upper respiratory symptoms. She arrives here with tachycardia and a heart rate around 125 beats per minute. Other vital signs are in normal range. She states that prior to this she was feeling normal. Related Data Previous Rx's ?Medication ?Instructions ?Recorded gabapentin 300 mg capsule 300 - 600 mg (1 - 2 x 300 mg) PO 09/21/24 TID #90 caps lorazepam 1 mg tablet 0.5 - 1 mg (0.5 - 1 x 1 mg) PO BID 09/21/24 PRN anxiety #5 tabs cephalexin 500 mg capsule 500 mg PO TID 7 days #21 caps 11/02/24 Allergies Allergy/AdvReac Type Severity Reaction Status Date / Time No Known Drug Allergies Allergy Verified 11/02/24 14:25 Review of Systems Status of ROS: Reports: 10 or more systems reviewed and unremarkable except as noted in History and below Narrative: Constitutional: No weight gain or loss. She reports a fever. Eyes: No discharge. No vision changes. HENT: No congestion, no sore throat, no ear pain. She reports a headache. Cardiovascular: No chest pain, no palpitations. Respiratory: No shortness of breath, no wheezes. Occasional cough. Gastrointestinal: No abdominal pain, no vomiting, no diarrhea. Genitourinary: No dysuria, no hematuria. Musculoskeletal: Normal range of motion. Skin: No rashes, no pruritis. Neurological: No dizziness, weakness, sensory change, speech change. Endo/Heme/Allergies: No bruising or bleeding. Pysch: no suicidality, no anxiety, no insomnia. All other systems reviewed and are negative. 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 What is your current living situation?: declined to answer Problems where you live: declined to answer In the past 12 months, utilities in danger of being shut off: declined to answer In past 12 months, lack of transportation kept you from medical appts, meetings, work, or getting things needed for daily living: declined to answer In the past 12 mos, have been you worried that your food would run out before you had money to buy more?: declined to answer In the past 12 mos, the food you bought just didn't last and you didn't have money to buy more?: declined to answer Smoking Status: Never smoker Do you use any of these nicotine containing products: None Second hand tobacco smoke exposure: No How often do you have a drink containing alcohol: never How often do you have six or more drinks on one occasion: Never AUDIT-C Alcohol total score: 0 Non-prescribed substance use: denies use How often does anyone, including family, friends and others, physically hurt you: decline to answer How often does anyone, including family, friends and others, insult or talk down to you: decline to answer How often does anyone, including family, friends and others, threaten you with harm: decline to answer How often does anyone, including family, friends and others, scream or curse at you: decline to answer service: No Health Related Social Needs: unsheltered homelessness (Z59.02) Exam Narrative: Exam Narrative: Constitutional: Well-developed, well-nourished, no acute distress. HEENT: Normocephalic, atraumatic. Neck: Normal range of motion. Nontender. Supple. Heart: Regular. No murmurs. Tachycardia. Intact distal pulses. Lungs: Clear to auscultation. No chest discomfort. No wheezes, rhonchi, or rales. Abdomen: Normal bowel sounds. Nontender. No rebound tenderness. Genitalia: Deferred. Back: No midline tenderness. Normal range of motion. Extremities: Normal range of motion. No injury. Skin: Intact. No rash. Warm. No erythema or pallor. Neurologic: No altered sensation. No weakness. Alert and oriented. Psychiatric: No suicidality. No anxiety or depression. No insomnia. Nursing notes and vitals signs are reviewed. Const: Vital Signs, click to edit/add: Vital Signs - 24 hr 11/02/24 14:21 11/02/24 14:55 11/02/24 14:56 Temperature 99.6 F Pulse Rate 128 H 128 H Pulse Rate [Pulse Oximeter] 134 H Respiratory Rate 24 48 H 39 H Blood Pressure 137/91 H Blood Pressure [Le ft Forearm] 125/82 Pulse Oximetry 94 95 95 Oxygen Delivery Me thod Room Air 11/02/24 15:00 11/02/24 15:01 11/02/24 15:02 Temperature Pulse Rate 125 H 126 H 132 H Pulse Rate [Pulse Oximeter] Respiratory Rate 19 28 H 16 Blood Pressure 151/91 H Blood Pressure [Le ft Forearm] Pulse Oximetry 95 95 96 Oxygen Delivery Me thod 11/02/24 15:47 11/02/24 16:00 11/02/24 16:01 Temperature Pulse Rate 114 H 111 H Pulse Rate [Pulse Oximeter] Respiratory Rate 24 19 13 Blood Pressure 141/90 H Blood Pressure [Le ft Forearm] Pulse Oximetry 95 98 Oxygen Delivery Me thod 11/02/24 16:02 11/02/24 16:15 11/02/24 16:17 Temperature Pulse Rate 111 H 110 H 110 H Pulse Rate [Pulse Oximeter] Respiratory Rate 21 26 H 22 Blood Pressure 148/82 H Blood Pressure [Le ft Forearm] Pulse Oximetry 97 95 97 Oxygen Delivery Me thod 11/02/24 16:18 11/02/24 16:30 11/02/24 16:31 Temperature Pulse Rate 110 H 110 H 111 H Pulse Rate [Pulse Oximeter] Respiratory Rate 24 10 L 15 Blood Pressure 139/88 Blood Pressure [Le ft Forearm] Pulse Oximetry 96 98 100 Oxygen Delivery Me thod 11/02/24 16:45 11/02/24 16:46 11/02/24 16:46 Temperature Pulse Rate 114 H 114 H 114 H Pulse Rate [Pulse Oximeter] Respiratory Rate 20 22 22 Blood Pressure 140/90 H 140/90 H Blood Pressure [Le ft Forearm] Pulse Oximetry 95 95 95 Oxygen Delivery Me thod Course Vital Signs Vital signs: Initial Vital Signs Temperature 99.6 F 11/02/24 14:21 Temperature Source Temporal Artery Scan 11/02/24 14:21 Pulse Rate 134 H 11/02/24 14:21 Respiratory Rate 24 11/02/24 14:21 Blood Pressure 125/82 11/02/24 14:21 Blood Pressure Mean 96 11/02/24 14:21 Blood Pressure Position Sitting 11/02/24 14:21 Pulse Oximetry 94 11/02/24 14:21 Oxygen Delivery Method Room Air 11/02/24 14:21 Vital Signs Temperature 99.6 F 11/02/24 14:21 Pulse Rate 134 H 11/02/24 14:21 Respiratory Rate 24 11/02/24 14:21 Blood Pressure 125/82 11/02/24 14:21 Pulse Oximetry 94 11/02/24 14:21 Oxygen Delivery Method Room Air 11/02/24 14:21 Temperature 99.6 F 11/02/24 14:21 Pulse Rate 114 H 11/02/24 16:46 Respiratory Rate 11/02/24 16:46 Blood Pressure 140/90 H 11/02/24 16:46 Pulse Oximetry 95 11/02/24 16:46 Oxygen Delivery Method Room Air 11/02/24 14:21 Medications Administered Medications: Discontinued Medications Generic Name Dose Route Start Last Admin Trade Name Calebq PRN Reason Stop Dose Admin Acetaminophen 1,000 mg 11/02/24 16:17 11/02/24 16:20 Acetaminophen 500 Mg Tablet PO 11/02/24 16:18 1,000 mg ONCE ONE Administration Sodium Chloride 1,000 mls @ 1,000 mls/hr 11/02/24 15:15 11/02/24 16:30 0.9 % Sodium Chloride 1000 Ml IV 11/02/24 16:14 Infused .Q1H ODALYS Infusion Ceftriaxone Sodium 1 gm/ 100 mls @ 200 mls/hr 11/02/24 17:53 11/02/24 18:09 Sodium Chloride IVPB 11/02/24 17:54 200 mls/hr ONCE ONE Administration Medical Decision Making MDM Narrative Medical decision making narrative: This patient comes in reporting generalized malaise with tachycardia and episodes of feeling lightheaded. She also reports a headache. An IV is established where she received a L of normal saline. She also received oral Tylenol. She states that she is feeling better. Lab results returned with normal findings including normal white count, normal D-dimer, normal troponin and electrolytes. Urinalysis however shows sign of infection. The patient did receive an IV dose of Rocephin and is okay to return home. Her lactate level is in normal range. She is not showing any signs of sepsis. A prescription for Keflex is provided. Lab Data Labs: Lab Results 11/02/24 11/02/24 11/02/24 Range/Units 15:04 15:40 16:39 WBC 9.74 (4.50-11.00) K/uL RBC 5.16 (4.00-5.20) m/uL Hgb 14.5 (12.0-16.0) gm/dL Hct 43.7 (33.0-51.0) % MCV 85 (80-100) fL MCH 28 (26-34) pg MCHC 33 (32-36) gm/dL RDW Coeff of Cailin 13.3 (11.5-15.5) % Plt Count 157 (140-440) K/uL Neut % (Auto) 77.2 H (42.0-72.0) % Lymph % (Auto) 11.2 L (20-44) % [place] % (Auto) 10.8 (0.0-11.0) % Eos % (Auto) 0.4 (0.0-7.0) % Baso % (Auto) 0.2 (0.0-3.0) % Neut # (Auto) 7.50 H (1.7-7.0) K/uL Lymph # (Auto) 1.10 (0.90-2.90) K/uL [place] # (Auto) 1.10 H (0.00-0.90) K/UL Eos # (Auto) 0.04 (0.00-0.50) K/uL Baso # (Auto) 0.02 (0.00-0.30) K/uL Abs Immat Gran (auto) 0.02 (0.00-0.30) K/uL Imm/Tot Granulo (auto) 0.2 % D-Dimer Quant (PE/DVT) 0.40 (0.00-0.50) ug/ml Sodium 136 (135-149) mmol/L Potassium 4.4 (3.6-5.1) mmol/L Chloride 105 (96-114) mmol/L Carbon Dioxide 22 (20-32) mmol/L Anion Gap 9 (7-15) mEq/L BUN 15 (7-30) mg/dL Creatinine 0.7 (0.5-1.5) mg/dL Estimated Creat Clear 38.35 Estimated GFR 88 ml/min Glucose 120 H (60-115) mg/dL Lactate 1.1 (0.5-1.9) mmol/L Calcium 9.2 (8.4-10.6) mg/dL Procalcitonin 0.17 (<0.50) ng/mL Urine Color (Yellow) Urine Appearance (Clear) Urine pH (5.0-8.5) Ur Specific Joshua (1.000-1.030) Urine Protein (Negative) Urine Glucose (UA) (Negative) Urine Ketones (Negative) Urine Blood (Negative) Urine Nitrite (Negative) Urine Bilirubin (Negative) Urine Urobilinogen (0.2-1.0) Ur Leukocyte Esterase (Negative) Urine RBC (0-2) Urine WBC (0-5) Ur Squamous Epith Cells (None-Few) Urine Bacteria (None) SARS-CoV-2 (PCR) Negative SARS-CoV-2 (Negative) Influenza Type A (PCR) Negative PCR FLU A (Negative) Influenza Type B (PCR) Negative PCR FLU B (Negative) RSV (PCR) Negative PCR RSV (Negative) POC Troponin I 0.04 (0.01-0.04) ng/ml 11/02/24 Range/Units 17:05 WBC (4.50-11.00) K/uL RBC (4.00-5.20) m/uL Hgb (12.0-16.0) gm/dL Hct (33.0-51.0) % MCV (80-100) fL MCH (26-34) pg MCHC (32-36) gm/dL RDW Coeff of Cailin (11.5-15.5) % Plt Count (140-440) K/uL Neut % (Auto) (42.0-72.0) % Lymph % (Auto) (20-44) % [place] % (Auto) (0.0-11.0) % Eos % (Auto) (0.0-7.0) % Baso % (Auto) (0.0-3.0) % Neut # (Auto) (1.7-7.0) K/uL Lymph # (Auto) (0.90-2.90) K/uL [place] # (Auto) (0.00-0.90) K/UL Eos # (Auto) (0.00-0.50) K/uL Baso # (Auto) (0.00-0.30) K/uL Abs Immat Gran (auto) (0.00-0.30) K/uL Imm/Tot Granulo (auto) % D-Dimer Quant (PE/DVT) (0.00-0.50) ug/ml Sodium (135-149) mmol/L Potassium (3.6-5.1) mmol/L Chloride (96-114) mmol/L Carbon Dioxide (20-32) mmol/L Anion Gap (7-15) mEq/L BUN (7-30) mg/dL Creatinine (0.5-1.5) mg/dL Estimated Creat Clear Estimated GFR ml/min Glucose (60-115) mg/dL Lactate (0.5-1.9) mmol/L Calcium (8.4-10.6) mg/dL Procalcitonin (<0.50) ng/mL Urine Color Yellow (Yellow) Urine Appearance Clear (Clear) Urine pH 7.0 (5.0-8.5) Ur Specific Joshua 1.015 (1.000-1.030) Urine Protein Negative (Negative) Urine Glucose (UA) Negative (Negative) Urine Ketones Negative (Negative) Urine Blood Trace-intact A (Negative) Urine Nitrite Positive A (Negative) Urine Bilirubin Negative (Negative) Urine Urobilinogen 1.0 (0.2-1.0) Ur Leukocyte Esterase 1+ A (Negative) Urine RBC 0-2 (0-2) Urine WBC >100 A (0-5) Ur Squamous Epith Cells None (None-Few) Urine Bacteria Many A (None) SARS-CoV-2 (PCR) (Negative) Influenza Type A (PCR) (Negative) Influenza Type B (PCR) (Negative) RSV (PCR) (Negative) POC Troponin I (0.01-0.04) ng/ml Imaging Data Chest x-ray: Radiologist's impression: No acute findings. ECG Data Attestation: I personally reviewed and interpreted this ECG as follows: Interpretation: Sinus tachycardia, rate 124 beats per minute. Occasional PVCs. There are no specific ST or T-wave abnormalities. Discharge Plan Discharge Clinical Impression: Urinary tract infection Patient Disposition: Home, Self-Care Condition: Improved Additional Instructions: Take medication as prescribed. Follow up with MD return if worsening. Prescriptions: New cephalexin 500 mg capsule 500 mg PO TID 7 Days Qty: 21 0RF No Action gabapentin 300 mg capsule 300 - 600 mg PO TID Qty: 90 2RF lorazepam 1 mg tablet 0.5 - 1 mg PO BID PRN (Reason: anxiety) Qty: 5 0RF Follow Up/Referrals: Chris Garcia MD [Primary Care Provider] - Stand Alone Forms: [employer] Info Instructions
[2024-11-02] MEDS: 0.9 % SODIUM CHLORIDE 1000 ml 1,000 ML IV (15:15)
--- OUTSIDE RECORDS SUMMARY | 2024-11-02 15:36 | XMS_ITS | Clinical Summary ---
Author Organization [facility] Address [address] [place] [address] Phone Care Team Providers Care Admin Prog Coord Name Role Phone [facility] Unavailable Unava ilable Conditions or Problems Problem Name Problem Code Onset Date Status Entry Date Provider Comment Standard Description Annotate Neck pain 63267864 (SNOMED CT) 12/28 Active 12/28 Sebastian Strong MD Neck pain Developmental dyslexia as a rule out 740941192 (SNOMED CT) 12/11 Active 12/27 Heather Ward PhD Developmental dyslexia Attention or concentration deficit 77690274 (SNOMED CT) 12/11 Active 12/27 Heather Ward PhD Undifferentiated attention deficit disorder Memory problems R41.3 (ICD-10-CM ) 09/10 Active 09/10 Sebastian Strong MD Other amnesia 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 (ICD-10-CM ) 03/18 Active 03/18 Sebastian Strong MD Sacrococcygeal disorders, not elsewhere classified LEG PAIN 84684062 (SNOMED CT) 12/26 Active 12/26 Sebastian Strong MD Pain in lower limb ESSENTIAL TREMOR 283074175 (SNOMED CT) 12/26 Active 12/26 Sebastian Strong MD Essential tremor Medications Medication Instructions Start Date Stop Date Generic Name [facility] Provider GABAPENTIN 300 MG CAPS 1 pill bid for Week #1, then 1 po tid beginning in Week #2 and thereafter GABAPENTIN [id number] Sebastian Strong MD CYCLOBENZAPRINE HCL 10 MG TABS 1 po bid CYCLOBENZAPRINE HCL 06273228943 Sebastian Strong MD MYSOLINE 50 MG TABS 1 po bid PRIMIDONE [id number] Sebastian Strong MD MYSOLINE 50 MG TABS Week #1 take 1/2 po qhs, then Week #2 take 1/2 po bid, then Week #3 take 1/2 po in AM and 1 po in PM, then Week #4 and tereafter take 1 po bid 09/08 PRIMIDONE [id number] Sebastian Strong MD Medications Administered No information [...] Mailed fi lm status, radiology Office Visit: [facility] SMOK STATUS Previous Smoker/Previous User Tobacco smoking status Internal Other: Observation data from Authorization.pdf HIECONSENT Y Consent To Release information to the Health Information Exchange ([employer]) Plan of Care Type Date Detail Pending order MRI-Cervical W/O Pending order Neuropsychology Evaluation Pending order TSH Pending order Vitamin B1 (Thia mine) Pending order Vitamin B12 Pending order CT-Brain W/O Procedures Code Procedure Name Date Entry Date [id number] MRI-Cervical W/O ORDERS Neuropsychology Evaluation 2 CPT-42301 Npsy Interview w/Provider - 1st hour 2021 CPT-63061 Npsy Interp/Rpt by Provider - 1st hour 30/12/02 CPT-33065 Npsy Interp/Rpt by Provider - 2 hours 09/15/02 CPT-45707 Npsy Test by Tech (2+ Tests) - 1st 30 min CPT-75863 Npsy Test by Tech (2+ Tests) - 1.5 hours ORDERS TSH ORDERS Vitamin B1 (Thiamine) 09/10 ORDERS Vitamin B12 [id number] CT-Brain W/O CPT-11425 MRI Lumbar W/O CPT-41249 MRI Pelvis (Without Contrast) CPT-48185 MRI Lumbar (Without Contrast) Vital Signs Date [...]
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
[2024-11-02 15:51] LABS: Lactate* 1.1 mmol/L (0.5-1.9)
[2024-11-02 15:55] LABS: Basophils Absolute Auto 0.02 K/uL (0.00-0.30); Basophils Percent Auto 0.2 % (0.0-3.0); Eosinophils Absolute Auto 0.04 K/uL (0.00-0.50); Eosinophils Percent Auto 0.4 % (0.0-7.0); Hematocrit 43.7 % (33.0-51.0); Hemoglobin* 14.5 gm/dL (12.0-16.0); Immature Granulocytes Abs Auto 0.02 K/uL (0.00-0.30); Immature Granulocytes Pct Auto 0.2 %; Lymphocytes Percent Auto 11.2 % (20-44); Mean Corpuscular HGB Conc 33 gm/dL (32-36); Mean Corpuscular Hemoglobin 28 pg (26-34); Mean Corpuscular Volume 85 fL (80-100); Monocytes Percent Auto 10.8 % (0.0-11.0); Neutrophils Percent Auto 77.2 % (42.0-72.0); Platelet Count* 157 K/uL (140-440); RDW Coefficient of Variation % 13.3 % (11.5-15.5); Red Blood Count 5.16 m/uL (4.00-5.20); White Blood Count* 9.74 K/uL (4.50-11.00)
[2024-11-02 15:55] LABS: Troponin, Point-of-Care* 0.04 ng/ml (0.01-0.04)
[2024-11-02 16:06] LABS: Chloride* 105 mmol/L (96-114); Potassium* 4.4 mmol/L (3.6-5.1); Sodium* 136 mmol/L (135-149)
[2024-11-02 16:09] LABS: Anion Gap 9 mEq/L (7-15); Blood Urea Nitrogen* 15 mg/dL (7-30); Carbon Dioxide* 22 mmol/L (20-32); Creatinine* 0.7 mg/dL (0.5-1.5); Est. Creatinine Clearance* 38.35; Estimated Glomerular Filt Rate 88 ml/min
[2024-11-02 16:10] LABS: Calcium* 9.2 mg/dL (8.4-10.6); Glucose* 120 mg/dL (60-115); Slide Review Reflex No
[2024-11-02] MEDS: ACETAMINOPHEN 500 MG TABLET 1000 MG PO (16:20)
[2024-11-02 16:27] LABS: Procalcitonin* 0.17 ng/mL (<0.50)
[2024-11-02 16:30] LABS: PCR FLU A Negative PCR FLU A (Negative); PCR FLU B Negative PCR FLU B (Negative); PCR RSV Negative PCR RSV (Negative); SARS PCR* Negative SARS-CoV-2 (Negative)
[2024-11-02 17:23] LABS: Appearance Urine Clear (Clear); Bilirubin Urine Negative (Negative); Blood Urine Trace-intact (Negative); Color Urine Yellow (Yellow); Glucose Urine Negative (Negative); Ketones Urine Negative (Negative); Leukocyte Esterase Urine 1+ (Negative); Nitrite Urine Positive (Negative); Protein Urine Negative (Negative); Specific Gravity Urine 1.015 (1.000-1.030)
[2024-11-02 17:46] LABS: Bacteria Urine Many; RBC Urine 0-2 (0-2); WBC Urine >100 (0-5)
[2024-11-02] MEDS: cefTRIAXone 1 GM in 0.9 % SODIUM CHLORIDE Mini-bag 100 ML IVPB (18:09)
== END 2024-11-02 18:37 | disposition home or self-care (01) ==
PROVIDERS: Emergency Provider Emergency Medicine Emergency Medical Services; PCP Family Medicine
DX: N39.0 Urinary tract infection, site not specified (principal); R05.1 Acute cough
CPT/HCPCS: 36415; 71046; 80048; 81001; 83605; 84145; 84484; 85025; 85379; 87040; 87086; 87631; 96365; 99284; A9270; J0696; J7030

== ENCOUNTER 2025-01-05 14:44 | Outpatient (CLI) | payer MEDICARE, SELFPAY | END 2025-01-05 14:45 | disposition home or self-care (01) | LOC: RAD 14:45 | PROVIDERS: PCP Family Medicine; Visit Provider Family Medicine | DX: I48.91 Unspecified atrial fibrillation (principal); I51.7 Cardiomegaly; I35.1 Nonrheumatic aortic (valve) insufficiency; I34.0 Nonrheumatic mitral (valve) insufficiency; I07.1 Rheumatic tricuspid insufficiency | CPT/HCPCS: 93306 ==